=== PATIENT | female | born 1970 | race Caucasian/White ===

== ENCOUNTER 2016-09-30 07:09 | Emergency (ER) | payer OTHER ==
[~2016-09-30] VITALS: Ht 162.6 cm; Wt 64.4 kg
[~2016-09-30 07:09] MED LIST: ABILIFY20 MG PO; ANTACID; ATIVAN1 M1 PO; ATIVAN1 MG PO; BACTRIM DS 800/1 TAB PO; BELLADONNA ALK1 TAB PO; BELLADONNA1 TA1 PO; BENADRYL PO; BENADRYL50 MG PO; CETIRIZINE HCL10 MG PO; CIPRO250 M1 PO; CIPRO500 MG PO; CLONAZEPAM1 M1 PO; COGENTIN; COGENTIN1 M1 PO; CYCLOBENZAPRINE10 MG PO; DEPAKOTE; DEPAKOTE ER500 MG PO; DEPAKOTE250 M1; DEPAKOTE500 M1 PO; DEPAKOTE500 MG PO; DITROPAN5 MG PO; FAMOTIDINE10 MG PO; GEODON; GEODON20 MG PO; HALDOL1 MG PO; HALDOL20 MG PO; HALDOL5 MG PO; HALOPERIDOL5 MG PO; HYDROCODONE BIT1 T52 PO; IMMODIUM PO; KEFLEX500 M1 PO; KENALOG 0.1%15 GM TP; MIRALAX17 GM/DOSE PO; NEURONTIN; NEURONTIN300 M1 PO; OMEPRAZOLE40 MG PO; ONDANSETRON ODT4 MG SL; PAXIL; PHENERGAN25 M1 PO; PREMARIN0.625 M1 PO; RANITIDINE150 MG PO; REGLAN5 M1 PO; RESPERIDOL; RISPERDAL CONST50 MG IM; RISPERDAL CONST50 MG IM/IV; RISPERIDAL; SERAQUIL; SEROQUEL XR400 MG PO; SEROQUEL100 MG PO; SEROQUEL200 MG PO; SEROQUEL25 MG; SEROQUEL25 MG PO; SEROQUEL400 MG PO; SUCRALFATE1 GM PO; SYNTHROID0.025 MG PO; TYLENOL #3 300/1 TAB PO; ULTRAM50 MG PO; VALPROIC ACID PO; VALPROIC ACID250 M1 PO; VICODIN 5/500 M1 TAB PO; ZANTAC; ZOCOR40 MG PO; ZOFRAN PO; ZOFRAN4 M1 PO; ZOFRAN4 M3 PO; ZYPREXA; ZYPREXA ZYDIS10 MG; ZYPREXA10 MG; [UNRECOGNIZED DRUG - OTHER]; albuterol
[2016-09-30 07:27] VITALS: BP 115/76
--- NOTE | 2016-09-30 07:39 | NUR ---
Patient ambulated to bed 03.
--- NOTE | 2016-09-30 07:41 | NUR ---
Dr. Jaeger evaluating patient at bedside.
--- NOTE | 2016-09-30 07:42 | NUR ---
PATIENT PRESENTS TO ED WITH FALL THIS MORNING, HAS LEFT BREAST PAIN, FREQUENT URINATION, BACK PAIN, TWO DAYS AGO HAVE ABDOMINAL PAIN, VOMITTING, DIARRHEA HX BIPOLAR, SCHIZOPHRENIA, ASTHMA, ANXIETY, HTN, HIGH CHOLESTEROL,SEIZURES, DENIES N/V/D AT THIS TIME, SKIN IS PINK/WARM/DRY; AAOX4 WITH EVEN AND STEADY GAIT; LUNGS CLEAR BL; HR EVEN AND REGULAR; PT DENIES ANY FEVER, CP, SOB, OR COUGH AT THIS TIME; PATIENT STATES PAIN OF 10/10 AT THIS TIME; VSS; PATIENT POSITIONED FOR COMFORT; HOB ELEVATED; BEDRAILS UP X2; BED DOWN. ER MD MADE AWARE OF PT STATUS.
[2016-09-30] MEDS ORDERED: KETOROLAC 60 MG/2 ML VIAL IM ONE (07:45)
--- NOTE | 2016-09-30 07:48 | NUR ---
AWRE OF URINE DIP RESULT
[2016-09-30 09:37] VITALS: BP 114/67
--- NOTE | 2016-09-30 09:37 | NUR ---
Patient discharged with v/s stable. Written and verbal after care instructions given and explained. Patient alert, oriented and verbalized understanding of instructions. Ambulatory with steady gait. All questions addressed prior to discharge. ID band removed. Patient advised to follow up with PMD. Rx of TRAMADOL 50 MG given. Patient educated on indication of medication including possible reaction and side effects. Opportunity to ask questions provided and answered.
== END 2016-09-30 09:37 | disposition home or self-care (01) ==
LOC: MED 07:09
DX: R10.84 Generalized abdominal pain (principal); Z88.6 Allergy status to analgesic agent; Z88.5 Allergy status to narcotic agent
CPT/HCPCS: 36415; 74022; 80053; 81001; 81025; 82150; 83690; 85025; 85610; 85730; 87086; 96372; 99285; J1885

== ENCOUNTER 2016-10-25 07:23 | Emergency (ER) | payer OTHER ==
[~2016-10-25] VITALS: Ht 162.6 cm; Wt 63.0 kg
[2016-10-25 07:31] VITALS: BP 117/78
[2016-10-25] MEDS ORDERED: PHENERGAN/CODEIN5 ML PO (07:35)
--- NOTE | 2016-10-25 07:36 | NUR ---
Patient ambulated to bed 06.
--- NOTE | 2016-10-25 07:37 | NUR ---
PT STATES COUGH X 1 WEEK . DENIES N/V/D; SKIN IS PINK/WARM/DRY; AAOX4 WITH EVEN AND STEADY GAIT; LUNGS CLEAR BL; HR EVEN AND REGULAR; PT DENIES ANY FEVER, CP, SOB, AT THIS TIME; PATIENT STATES PAIN OF BACK PAIN WHILE COUGHING 9/10 AT THIS TIME; VSS; PATIENT POSITIONED FOR COMFORT; HOB ELEVATED; BEDRAILS UP X2; BED DOWN. ER MD MADE AWARE OF PT STATUS.
--- NOTE | 2016-10-25 07:59 | NUR ---
Dr. Maravilla evaluating patient at bedside.
[2016-10-25] MEDS ORDERED: ALBUTEROL SULFATE/IPRATROPIU 3 ML SOL IH ONE (08:05)
[2016-10-25] MEDS ORDERED: MORPHINE SULFATE 2 MG/ML SYR IM ONE (08:05)
[2016-10-25] MEDS ORDERED: ONDANSETRON 4 MG ODT PO ONE (08:05)
--- NOTE | 2016-10-25 08:35 | NUR ---
Patient back from XRAY via wheelchair per tech
[2016-10-25] MEDS ORDERED: LORazepam 1 MG TAB PO ONE (09:10)
[2016-10-25 09:18] VITALS: BP 106/71
--- NOTE | 2016-10-25 09:18 | NUR ---
Patient discharged with v/s stable. Written and verbal after care instructions given and explained. Patient alert, oriented and verbalized understanding of instructions. Ambulatory with steady gait. All questions addressed prior to discharge. ID band removed. Patient advised to follow up with PMD. Rx of PREDNISONE AND AZITHROMYCIN given. Patient educated on indication of medication including possible reaction and side effects. Opportunity to ask questions provided and answered.
== END 2016-10-25 09:18 | disposition home or self-care (01) ==
LOC: MED 07:43
DX: J45.901 Unspecified asthma with (acute) exacerbation (principal); F41.9 Anxiety disorder, unspecified; I10 Essential (primary) hypertension; Z88.5 Allergy status to narcotic agent; Z88.8 Allergy status to other drugs, medicaments and biological substances
CPT/HCPCS: 71020; 94640; 96372; 99284; J2270; J7620; S0119

== ENCOUNTER 2016-10-29 17:16 | Emergency (ER) | payer OTHER ==
[~2016-10-29] VITALS: Ht 162.6 cm; Wt 63.0 kg
[~2016-10-29 17:16] MED LIST changes: +PHENERGAN/CODEIN5 ML PO
[2016-10-29] MEDS ORDERED: NACL 0.9% 1,000 ML IV ONE (17:20)
[2016-10-29] MEDS ORDERED: KETOROLAC 30 MG/ML VIAL IVP ONE (17:20)
[2016-10-29] MEDS ORDERED: ASPIRIN 81 MG TAB.CHEW PO ONE (17:20)
[2016-10-29 17:22] VITALS: BP 108/69
--- NOTE | 2016-10-29 17:25 | NUR ---
46/F BIBA FROM HOME C/O COUGH X 1 DAY; PER EMS, PT DX W/ BRONCHITIS FROM [facility] X 2 WEEKS AGO, HAS BEEN HAVING COUGH SINCE, BUT WORSENED TODAY. HX: BIPOLAR, SCHIZOPHRENIA, ASTHMA, HTN, HIGH CHOLESTEROL, SEIZURE, ANXIETY. PT DENIES N/V/D; SKIN IS PINK/WARM/DRY; AAOX4 WITH EVEN AND STEADY GAIT; LUNGS CLEAR BL; HR EVEN AND REGULAR; PT DENIES ANY FEVER AT THIS TIME; PATIENT STATES PAIN OF 8/10 AT THIS TIME; VSS; PATIENT POSITIONED FOR COMFORT; HOB ELEVATED; BEDRAILS UP X2; BED DOWN. ER MD MADE AWARE OF PT STATUS.
--- NOTE | 2016-10-29 17:32 | NUR ---
X RAY AT BEDSIDE
[2016-10-29 19:21] VITALS: BP 125/78
--- NOTE | 2016-10-29 19:21 | NUR ---
Patient discharged with v/s stable. Written and verbal after care instructions given and explained. Patient alert, oriented and verbalized understanding of instructions. Ambulatory with steady gait. All questions addressed prior to discharge. ID band removed. Patient advised to follow up with PMD. Rx of DEXTROMETHORPHAN given. Patient educated on indication of medication including possible reaction and side effects. Opportunity to ask questions provided and answered.ENCOURAGED PT TO INCREASE FLUID INTAKE AND PT AGREED W/ IT.
== END 2016-10-29 19:21 | disposition home or self-care (01) ==
LOC: MED 17:16
DX: J06.9 Acute upper respiratory infection, unspecified (principal); J45.909 Unspecified asthma, uncomplicated; I10 Essential (primary) hypertension; E78.00 Pure hypercholesterolemia, unspecified; Z88.6 Allergy status to analgesic agent; Z88.5 Allergy status to narcotic agent
CPT/HCPCS: 36415; 71010; 80053; 81025; 83880; 84484; 85025; 85379; 85610; 85730; 93005; 96361; 96374; 99285; J1885; J7030; Q0092

== ENCOUNTER 2016-11-24 11:27 | Emergency (ER) | payer OTHER ==
[~2016-11-24] VITALS: Ht 160 cm; Wt 65.3 kg
[2016-11-24 11:41] VITALS: BP 112/71
[2016-11-24] MEDS ORDERED: ATIVAN1 MG PO (11:41)
[2016-11-24] MEDS ORDERED: RISPERDAL0.5 MG PO (11:41)
[2016-11-24] MEDS ORDERED: SEROQUEL300 MG PO (11:41)
[2016-11-24] MEDS ORDERED: BUSPAR5 MG PO (11:41)
[2016-11-24] MEDS ORDERED: NACL 0.9% 1,000 ML IV SCH (11:56)
[2016-11-24] MEDS ORDERED: ONDANSETRON 4 MG/2 ML VIAL IVP ONE (12:00)
--- NOTE | 2016-11-24 12:40 | NUR ---
Patient ambulated to bed 6. RN evaluating patient at bedside.
--- NOTE | 2016-11-24 12:41 | NUR ---
46/F BIB C/O BILATERAL FLANKS PAIN 7 RADIATES TO BACK X 2 DAYS. PT DENIES N/V/D; SKIN IS RASH; PT STATES FROM BUG BITED; AAOX4 WITH EVEN AND STEADY GAIT; LUNGS DIMINISHED BL; HR EVEN AND REGULAR; PT DENIES ANY FEVER, CP, SOB AT THIS TIME; PATIENT STATES PAIN OF 7/10 AT THIS TIME; VSS; PATIENT POSITIONED FOR COMFORT; HOB ELEVATED; BEDRAILS UP X2; BED DOWN. ER MD MADE AWARE OF PT STATUS.
[2016-11-24] MEDS ORDERED: IPRATROPIUM 0.02% 0.5 MG/2.5 ML NEBU INH ONE (12:55)
[2016-11-24] MEDS ORDERED: ALBUTEROL 0.083% 2.5 MG/3 ML NEBU INH ONE (12:55)
--- NOTE | 2016-11-24 13:00 | NUR ---
Patient appears to be resting comfortably in bed. Respirations even and unlabored.WILL CONTINUE TO MONITOR
[2016-11-24] MEDS ORDERED: MORPHINE SULFATE 2 MG/ML SYR IM ONE (13:15)
[2016-11-24] MEDS ORDERED: ONDANSETRON 4 MG/2 ML VIAL IM ONE (13:20)
[2016-11-24 15:36] VITALS: BP 103/61
--- NOTE | 2016-11-24 15:36 | NUR ---
Patient discharged with v/s stable. Written and verbal after care instructions given and explained. Patient alert, oriented and verbalized understanding of instructions. Ambulatory with steady gait. All questions addressed prior to discharge. ID band removed. Patient advised to follow up with PMD. Rx of TYLENOL W/ CODEINE NO3 & ALBUTEROL given. Patient educated on indication of medication including possible reaction and side effects. Opportunity to ask questions provided and answered.
== END 2016-11-24 15:36 | disposition home or self-care (01) ==
LOC: MED 11:27
DX: N23 Unspecified renal colic (principal); R06.02 Shortness of breath; R54 Age-related physical debility; J45.909 Unspecified asthma, uncomplicated; I10 Essential (primary) hypertension; Z88.5 Allergy status to narcotic agent; Z88.6 Allergy status to analgesic agent; Z98.890 Other specified postprocedural states
CPT/HCPCS: 36415; 80053; 80305; 81001; 81025; 82150; 83690; 85025; 94640; 96372; 99284; J2270; J2405; J7613; J7644

== ENCOUNTER 2017-02-16 01:47 | Emergency (ER) | payer OTHER ==
[~2017-02-16] VITALS: Ht 162.6 cm; Wt 63.5 kg
[~2017-02-16 01:47] MED LIST changes: -ABILIFY20 MG PO; -ANTACID; -ATIVAN1 M1 PO; -ATIVAN1 MG PO; -BACTRIM DS 800/1 TAB PO; -BELLADONNA ALK1 TAB PO; -BELLADONNA1 TA1 PO; -BENADRYL PO; -BENADRYL50 MG PO; +BUS5 PO; -CETIRIZINE HCL10 MG PO; -CIPRO250 M1 PO; -CIPRO500 MG PO; -CLONAZEPAM1 M1 PO; -COGENTIN; -COGENTIN1 M1 PO; -CYCLOBENZAPRINE10 MG PO; -DEPAKOTE; -DEPAKOTE ER500 MG PO; -DEPAKOTE250 M1; -DEPAKOTE500 M1 PO; -DEPAKOTE500 MG PO; -DITROPAN5 MG PO; -FAMOTIDINE10 MG PO; -GEODON; -GEODON20 MG PO; -HALDOL1 MG PO; -HALDOL20 MG PO; -HALDOL5 MG PO; -HALOPERIDOL5 MG PO; -HYDROCODONE BIT1 T52 PO; -IMMODIUM PO; -KEFLEX500 M1 PO; -KENALOG 0.1%15 GM TP; +LORA-476 PO; -MIRALAX17 GM/DOSE PO; -NEURONTIN; -NEURONTIN300 M1 PO; -OMEPRAZOLE40 MG PO; -ONDANSETRON ODT4 MG SL; -PAXIL; -PHENERGAN/CODEIN5 ML PO; -PHENERGAN25 M1 PO; +PRE.625 PO; -PREMARIN0.625 M1 PO; +QUET300T1 PO; -RANITIDINE150 MG PO; -REGLAN5 M1 PO; -RESPERIDOL; +RISP0.5T PO; -RISPERDAL CONST50 MG IM; -RISPERDAL CONST50 MG IM/IV; -RISPERIDAL; -SERAQUIL; -SEROQUEL XR400 MG PO; -SEROQUEL100 MG PO; -SEROQUEL200 MG PO; -SEROQUEL25 MG; -SEROQUEL25 MG PO; -SEROQUEL400 MG PO; -SUCRALFATE1 GM PO; -SYNTHROID0.025 MG PO; -TYLENOL #3 300/1 TAB PO; -ULTRAM50 MG PO; +VALP250S20 PO; -VALPROIC ACID PO; -VALPROIC ACID250 M1 PO; -VICODIN 5/500 M1 TAB PO; -ZANTAC; -ZOCOR40 MG PO; -ZOFRAN PO; -ZOFRAN4 M1 PO; -ZOFRAN4 M3 PO; -ZYPREXA; -ZYPREXA ZYDIS10 MG; -ZYPREXA10 MG; -[UNRECOGNIZED DRUG - OTHER]; -albuterol
[2017-02-16 02:05] VITALS: BP 155/93
--- NOTE | 2017-02-16 03:14 | NUR ---
PT TAKEN TO BED 4
--- NOTE | 2017-02-16 03:30 | NUR ---
Dr. Johnson evaluating patient at bedside.
[2017-02-16] MEDS ORDERED: ALBUTEROL SULFATE/IPRATROPIU 3 ML SOL IH ONE (03:40)
--- NOTE | 2017-02-16 04:02 | NUR ---
Respiratory Therapist at bedside for respiratory intervention.
--- NOTE | 2017-02-16 04:04 | NUR ---
46Y F BIB SELF C/O RT FLANK PAIN RADIATING TO HER BACK , AND FREQUENT URINATION STARTED 2 HOURS AGO. PT HAS WHEEZING BILAT. PT IS AAO X 4. PT HAS MED HX OF BIPOLAR SCHIZOPHRENIA.
--- NOTE | 2017-02-16 04:24 | NUR ---
X-Ray at bedside.
[2017-02-16] MEDS ORDERED: LIDOCAINE VISCOUS 2% 20 ML UDC PO ONE (04:30)
[2017-02-16] MEDS ORDERED: ALUMINUM HYD/MAG/SIMETHICONE 30 ML UDC PO ONE (04:30)
[2017-02-16 05:09] VITALS: BP 132/82
--- NOTE | 2017-02-16 05:09 | NUR ---
Patient discharged with v/s stable. Written and verbal after care instructions given and explained. Patient alert, oriented and verbalized understanding of instructions. Ambulatory with steady gait. All questions addressed prior to discharge. ID band removed. Patient advised to follow up with PMD. Rx of PREDNISONE 50MG given. Patient educated on indication of medication including possible reaction and side effects. Opportunity to ask questions provided and answered.
== END 2017-02-16 05:09 | disposition home or self-care (01) ==
LOC: MED 01:47
DX: J45.901 Unspecified asthma with (acute) exacerbation (principal); R03.0 Elevated blood-pressure reading, without diagnosis of hypertension; Z88.6 Allergy status to analgesic agent; Z88.5 Allergy status to narcotic agent; Z88.8 Allergy status to other drugs, medicaments and biological substances; I10 Essential (primary) hypertension
CPT/HCPCS: 71010; 81002; 81025; 94640; 99283; J7620; Q0092

== ENCOUNTER 2017-04-25 07:46 | Emergency (ER) | payer OTHER ==
[~2017-04-25] VITALS: Ht 162.6 cm; Wt 66.2 kg
--- NOTE | 2017-04-25 07:55 | NUR ---
Eddi jarvis in ED - 04/25/17 at 0800 by MMTHEM Patient ambulated to bed 3. RN evaluating patient at bedside.
--- NOTE | 2017-04-25 07:59 | NUR ---
Eddi jarvis in [facility] - 04/25/[address] at [address] Jaeger evaluating patient at bedside.
[2017-04-25 08:14] VITALS: BP 113/69
--- NOTE | 2017-04-25 08:23 | NUR ---
Patient ambulated to bed 6. RN evaluating patient at bedside.
--- NOTE | 2017-04-25 08:26 | NUR ---
Dr. Jaeger evaluating patient at bedside.
--- NOTE | 2017-04-25 08:30 | NUR ---
47/F PRESENT TO ER C/O PAINFUL LUMP UPON SWALLOWING TO ANTERIOR THROAT X 1 MONTH---HAS NOT BEEN SEEN BY PMD. PAIN 9/10 ACHING NON-RADIATING. NECK AREA NO REDNESS, NO SWELLING. PT STATES PAINFUL WHEN SHALLOWING BUT DENIES DIFFICULTY BREATHING. PT STATES SHE HAS HX---BIPOLAR SCHIZOPHRENIA, ANXIETY, HTN ,HYPERLIPIDEMIA, HYPERTHYROID, ASTHMA, GENITAL HERPES. DENIES TAKING ANY MEDS FOR THE PAIN. ERMD NOTIFIED OF PATIENT STATUS.
[2017-04-25 10:08] LABS: HEMATOCRIT 37.6 % (36-48); HEMOGLOBIN 12.6 g/dL (12.0-16.0); MEAN CORPUSCULAR HEMOGLOBIN 29 pg (27-31); MEAN CORPUSCULAR HGB CONC 33 g/dL (33-37); MEAN CORPUSCULAR VOLUME 88 fL (80-94); PLATELET COUNT (AUTO) 279 K/uL (140-450); RED BLOOD CELL COUNT(AUTO) 4.27 MIL/uL (4.20-5.40); RED CELL DISTRIBUTION WIDTH 14.3 % (11.6-13.7); WHITE BLOOD COUNT (AUTO) 8.6 K/uL (4.8-10.8)
[2017-04-25 10:17] LABS: ANION GAP 14.2 (8-16); CARBON DIOXIDE 25.5 mmol/L (21-32); CREATININE 0.7 mg/dL (0.6-1.3); POTASSIUM 3.7 mmol/L (3.5-5.1)
[2017-04-25 10:27] LABS: EOSINOPHILS % (MANUAL) 1 % (0-4); LYMPHOCYTES % (MANUAL) 28 % (20-46); MONOCYTES % (MANUAL) 8 % (5-12)
[2017-04-25 10:32] LABS: THYROID STIMULATING HORMONE 0.79 uIU/mL (0.34-3.74); TOTAL BILIRUBIN 0.3 mg/dL (0.0-1.0)
--- NOTE | 2017-04-25 11:07 | NUR ---
Patient discharged with v/s stable. Written and verbal after care instructions given and explained. Patient alert, oriented and verbalized understanding of instructions. Ambulatory with steady gait. All questions addressed prior to discharge. ID band removed. Patient advised to follow up with PMD. Rx of TRAMADOL 50MG TABLET given. Patient educated on indication of medication including possible reaction and side effects. Opportunity to ask questions provided and answered.
[2017-04-25 11:08] VITALS: BP 120/72
== END 2017-04-25 11:08 | disposition home or self-care (01) ==
LOC: MED 07:46
DX: E04.1 Nontoxic single thyroid nodule (principal); J44.9 Chronic obstructive pulmonary disease, unspecified; I10 Essential (primary) hypertension; Z88.5 Allergy status to narcotic agent; Z88.6 Allergy status to analgesic agent
CPT/HCPCS: 36415; 76536; 80053; 81002; 81025; 84443; 85025; 86800; 93005; 99285; Q0092

== ENCOUNTER 2017-10-14 06:10 | Emergency (ER) | payer OTHER ==
[~2017-10-14] VITALS: Ht 162.6 cm; Wt 64.1 kg
[~2017-10-14 06:10] MED LIST changes: -RISP0.5T PO; +RISP0.5T3 PO
[2017-10-14 06:24] VITALS: BP 120/76
--- NOTE | 2017-10-14 06:30 | NUR ---
PATIENT AMBULATED TO ER BBED 12.
--- NOTE | 2017-10-14 06:32 | NUR ---
PATIENT IS A 47 Y/O FEMALE WHO PRESENTS TO THE ED C/O NAUSEA/VOMITING. PT STATES, "I STARTED HAVING THESE SYMPTOMS AROUND FRIDAY." PT REPORTS 10/10 ACHING HEADACHE AND ABD PAIN THAT DOES NOT RADIATE. PT DENIES CP, SOB, REPORTS N/V/D. PT AAOX4, RR EVEN/UNLABORED. PT REPOSITIONED FOR COMFORT, BED IN LOWEST POSITION. ER MD DR. ROMANO NOTIFIED. WILL CONTINUE TO MONITOR.
--- NOTE | 2017-10-14 07:05 | NUR ---
Pt report given to MARY RN. Transfer of care at this time.
--- NOTE | 2017-10-14 07:15 | NUR ---
ASSUMED PATIENT CARE, CONCUR WITH TRIAGE. NURSING ASSESSMENT COMPLETED.
[2017-10-14] MEDS ORDERED: NACL 0.9% 1,000 ML IV ONE (07:28)
[2017-10-14] MEDS ORDERED: ONDANSETRON 4 MG/2 ML VIAL IVP ONE (07:30)
[2017-10-14] MEDS ORDERED: DICYCLOMINE 20 MG/2 ML VIAL IM ONE (07:30)
--- NOTE | 2017-10-14 08:00 | NUR ---
SEEN AND EVALUATED BY , MSE COMPLETED.
[2017-10-14 08:14] LABS: APPEARANCE,URINE CLOUDY (CLEAR); BILIRUBIN,URINE 1+ (NEGATIVE); BLOOD, URINE NEGATIVE (NEGATIVE); COLOR,URINE YELLOW (YELLOW); LEUKOCYTE ESTERASE ,URINE 1+ (NEGATIVE); NITRITE, URINE NEGATIVE (NEGATIVE); UGLUCOSE NEGATIVE (NEGATIVE)
[2017-10-14 08:26] LABS: ALBUMIN 3.8 g/dL (3.4-5.0); ANION GAP 14.7 (8-16); CREATININE 0.8 mg/dL (0.6-1.3); POTASSIUM 3.7 mmol/L (3.5-5.1); TOTAL BILIRUBIN 0.4 mg/dL (0.0-1.0)
[2017-10-14 08:35] LABS: BASOPHILS # (AUTO) 0.3 K/uL (0.00-0.22); BASOPHILS % (AUTO) 2.8 % (0.0-2.0); EOSINOPHILS # (AUTO) 0.1 K/uL (0-0.4); EOSINOPHILS % (AUTO) 0.9 % (0.0-4.0); HEMATOCRIT 38.3 % (36-48); HEMOGLOBIN 12.7 g/dL (12.0-16.0); LYMPHOCYTES # (AUTO) 1.7 K/uL (2.5-16.5); LYMPHOCYTES % (AUTO) 18.9 % (20.5-51.1); MEAN CORPUSCULAR HEMOGLOBIN 30 pg (27-31); MEAN CORPUSCULAR HGB CONC 33 g/dL (33-37); MEAN CORPUSCULAR VOLUME 89 fL (80-94); MONOCYTES # (AUTO) 0.5 K/uL (0.8-1.0); MONOCYTES % (AUTO) 5.7 % (1.7-9.3); NEUTROPHILS # (AUTO) 6.6 K/uL (1.8-7.7); NEUTROPHILS % (AUTO) 71.7 % (42.2-75.2); PLATELET COUNT (AUTO) 293 K/uL (140-450); RED BLOOD CELL COUNT(AUTO) 4.31 MIL/uL (4.20-5.40); RED CELL DISTRIBUTION WIDTH 13.8 % (11.6-13.7); WHITE BLOOD COUNT (AUTO) 9.2 K/uL (4.8-10.8)
[2017-10-14] MEDS ORDERED: MORPHINE SULFATE 4 MG/ML SYR IVP ONE (09:00)
[2017-10-14 09:13] LABS: RBC,URINE 0-5 (RARE) /HPF (0-5)
[2017-10-14 09:48] VITALS: BP 114/71
--- NOTE | 2017-10-14 09:49 | NUR ---
DISPO AND MEDICAL DECISION MAKING, DC HOME WITH INSTRUCTIONS AND PRESCRIPTIONS, UNDERSTOOD BY PATIENT WELL, VSWNL, NO DISTRESS, SYMPTOMS RESOLVED.
== END 2017-10-14 09:49 | disposition home or self-care (01) ==
LOC: MED 06:10
DX: N39.0 Urinary tract infection, site not specified (principal); J45.909 Unspecified asthma, uncomplicated; I10 Essential (primary) hypertension; Z88.5 Allergy status to narcotic agent; Z88.6 Allergy status to analgesic agent; Z90.49 Acquired absence of other specified parts of digestive tract
CPT/HCPCS: 36415; 80053; 81001; 83690; 85025; 87086; 96361; 96374; 96375; 99284; J0500; J2270; J2405; 81025

== ENCOUNTER 2018-01-09 08:39 | Emergency (ER) | payer OTHER ==
[~2018-01-09] VITALS: Ht 162.6 cm; Wt 62.8 kg
[2018-01-09 08:44] VITALS: BP 116/52
--- NOTE | 2018-01-09 08:47 | NUR ---
PT AMBULATES TO BED 5, REPORT GIVEN TO OLIVIA STONER
--- NOTE | 2018-01-09 08:57 | NUR ---
pt adds she is going through a genital herpes outbreak at this time ---md notified
--- NOTE | 2018-01-09 08:57 | NUR ---
PATIENT PRESENTS TO ED WITH c/o lower back pain and loose stools [place]/p [place] also adds dysuria with burning pain upon voiding denies recent injury/trauma--ambulatory with steady gait. SKIN IS PINK/WARM/DRY; AAOX4 LUNGS CLEAR BL; HR EVEN AND REGULAR; PT DENIES ANY FEVER, CP, SOB, OR COUGH AT THIS TIME; PATIENT STATES PAIN OF 8/10 AT THIS TIME; VSS; PATIENT POSITIONED FOR COMFORT; HOB ELEVATED; BEDRAILS UP X2; BED DOWN. ER MD MADE AWARE OF PT STATUS.
[2018-01-09] MEDS ORDERED: LEVOFLOXACIN 500 MG TAB PO ONE (09:15)
[2018-01-09] MEDS ORDERED: LORazepam 2 MG/ML VIAL IM ONE (09:15)
--- NOTE | 2018-01-09 10:01 | NUR ---
Patient discharged with v/s stable. Written and verbal after care instructions given and explained. Patient alert, oriented and verbalized understanding of instructions. Ambulatory with steady gait. All questions addressed prior to discharge. ID band removed. Patient advised to follow up with PMD. Rx of toradol/acyclovir/vistaril given. Patient educated on indication of medication including possible reaction and side effects. Opportunity to ask questions provided and answered.
[2018-01-09 10:02] VITALS: BP 117/70
== END 2018-01-09 10:01 | disposition home or self-care (01) ==
LOC: MED 08:39
DX: A60.00 Herpesviral infection of urogenital system, unspecified (principal); N30.90 Cystitis, unspecified without hematuria; R19.7 Diarrhea, unspecified; F48.9 Nonpsychotic mental disorder, unspecified; J45.909 Unspecified asthma, uncomplicated; I10 Essential (primary) hypertension; Z76.0 Encounter for issue of repeat prescription; Z88.8 Allergy status to other drugs, medicaments and biological substances; Z79.899 Other long term (current) drug therapy; Z87.891 Personal history of nicotine dependence
CPT/HCPCS: 81002; 81025; 96372; 99283; J2060

== ENCOUNTER 2018-03-18 20:24 | Emergency (ER) | payer OTHER ==
[~2018-03-18] VITALS: Ht 162.6 cm; Wt 64.0 kg
[2018-03-18 20:31] VITALS: BP 115/75
[2018-03-18] MEDS ORDERED: KETOROLAC 30 MG/ML VIAL IVP ONE (20:45)
[2018-03-18] MEDS ORDERED: NACL 0.9% 1,000 ML IV ONE (20:45)
[2018-03-18 21:10] LABS: BASOPHILS % (AUTO) 0.4 % (0.0-2.0); EOSINOPHILS # (AUTO) 0.3 K/uL (0-0.4); HEMATOCRIT 33.2 % (36-48); HEMOGLOBIN 11.1 g/dL (12.0-16.0); LYMPHOCYTES # (AUTO) 3.4 K/uL (2.5-16.5); LYMPHOCYTES % (AUTO) 39.1 % (20.5-51.1); MEAN CORPUSCULAR HEMOGLOBIN 30 pg (27-31); MEAN CORPUSCULAR HGB CONC 34 g/dL (33-37); MEAN CORPUSCULAR VOLUME 88.5 fL (80-94); MONOCYTES # (AUTO) 0.6 K/uL (0.8-1.0); MONOCYTES % (AUTO) 7.2 % (1.7-9.3); NEUTROPHILS # (AUTO) 4.4 K/uL (1.8-7.7); NEUTROPHILS % (AUTO) 50.3 % (42.2-75.2); PLATELET COUNT (AUTO) 277 K/uL (140-450); RED BLOOD CELL COUNT(AUTO) 3.75 MIL/uL (4.20-5.40); RED CELL DISTRIBUTION WIDTH 13.7 % (11.6-13.7); WHITE BLOOD COUNT (AUTO) 8.7 K/uL (4.8-10.8)
[2018-03-18 21:25] LABS: BILIRUBIN,URINE NEGATIVE (NEGATIVE); BLOOD, URINE TRACE-I (NEGATIVE); LEUKOCYTE ESTERASE ,URINE 1+ (NEGATIVE); NITRITE, URINE POSITIVE (NEGATIVE); UGLUCOSE NEGATIVE (NEGATIVE)
[2018-03-18 21:26] LABS: APPEARANCE,URINE HAZY (CLEAR); COLOR,URINE YELLOW (YELLOW)
[2018-03-18 21:38] LABS: ALBUMIN 3.1 g/dL (3.4-5.0); ANION GAP 13.6 (8-16); CARBON DIOXIDE 26.7 mmol/L (21-32); CREATININE 0.7 mg/dL (0.6-1.3); FREE T4 (FREE THYROXINE) 0.89 ng/dL (0.76-1.46); POTASSIUM 3.3 mmol/L (3.5-5.1); THYROID STIMULATING HORMONE 0.27 uIU/mL (0.34-3.74); TOTAL BILIRUBIN 0.2 mg/dL (0.0-1.0)
[2018-03-18 22:08] LABS: RBC,URINE 3-10 (FEW) /HPF (0-5); WBC,URINE TOO MANY TO COUNT /HPF (0-5)
[2018-03-18 23:01] VITALS: BP 118/78
== END 2018-03-18 23:03 | disposition home or self-care (01) ==
LOC: MED 20:24
DX: N39.0 Urinary tract infection, site not specified (principal); J02.9 Acute pharyngitis, unspecified; R53.1 Weakness; J45.909 Unspecified asthma, uncomplicated; I10 Essential (primary) hypertension; F41.9 Anxiety disorder, unspecified; F20.9 Schizophrenia, unspecified; Z79.899 Other long term (current) drug therapy; Z88.8 Allergy status to other drugs, medicaments and biological substances
CPT/HCPCS: 36415; 80053; 81001; 81025; 84439; 84443; 85025; 87086; 87186; 96374; 99284; J1885

== ENCOUNTER 2018-10-28 10:05 | Emergency (ER) | payer OTHER ==
[~2018-10-28] VITALS: Ht 162.6 cm; Wt 59.4 kg
--- NOTE | 2018-10-28 10:14 | NUR ---
PATIENT AMBULATED TO BED 3 AT THIS TIME.
--- NOTE | 2018-10-28 10:20 | NUR ---
PATIENT PRESENTS TO ED WITH THE CHIEF C/O FLANK PAIN. DENIES ANY BURNING URINATION OR BLOOD IN URINE. DENIES N/V/D AT THIS TIME. HAD DIARRHEA 4 DAYS AGO. SKIN IS PINK/WARM/DRY. AAOX4 WITH EVEN AND STEADY GAIT. PT DENIES ANY FEVER, CP, SOB, OR COUGH AT THIS TIME. PATIENT STATES PAIN OF 10/10 AT THIS TIME. VSS. PATIENT POSITIONED FOR COMFORT. HOB ELEVATED. BEDRAILS UP X2. BED DOWN. ER MD MADE AWARE OF PT STATUS.
[2018-10-28 10:21] VITALS: BP 127/79
[2018-10-28 10:44] LABS: BILIRUBIN,URINE NEGATIVE (NEGATIVE); BLOOD, URINE NEGATIVE (NEGATIVE); COLOR,URINE YELLOW (YELLOW); LEUKOCYTE ESTERASE ,URINE TRACE (NEGATIVE); NITRITE, URINE POSITIVE (NEGATIVE); UGLUCOSE NEGATIVE (NEGATIVE)
[2018-10-28 10:50] LABS: RBC,URINE NONE SEEN /HPF (0-5); WBC,URINE 0-5 /HPF (0-5)
[2018-10-28 10:51] LABS: APPEARANCE,URINE SLIGHTLY HAZY (CLEAR)
[2018-10-28] MEDS ORDERED: KETOROLAC 60 MG/2 ML VIAL IM ONE (11:10)
[2018-10-28 11:44] LABS: BASOPHILS % (AUTO) 0.6 % (0.0-2.0); EOSINOPHILS # (AUTO) 0.1 K/uL (0-0.4); EOSINOPHILS % (AUTO) 1.6 % (0.0-4.0); HEMATOCRIT 34.1 % (36-48); HEMOGLOBIN 11.4 g/dL (12.0-16.0); LYMPHOCYTES # (AUTO) 2.6 K/uL (2.5-16.5); LYMPHOCYTES % (AUTO) 38.6 % (20.5-51.1); MEAN CORPUSCULAR HEMOGLOBIN 29 pg (27-31); MEAN CORPUSCULAR HGB CONC 34 g/dL (33-37); MEAN CORPUSCULAR VOLUME 87.5 fL (80-94); MONOCYTES # (AUTO) 0.3 K/uL (0.8-1.0); MONOCYTES % (AUTO) 4.5 % (1.7-9.3); NEUTROPHILS # (AUTO) 3.6 K/uL (1.8-7.7); NEUTROPHILS % (AUTO) 54.7 % (42.2-75.2); PLATELET COUNT (AUTO) 316 K/uL (140-450); RED CELL DISTRIBUTION WIDTH 15.5 % (11.6-13.7); WHITE BLOOD COUNT (AUTO) 6.7 K/uL (4.8-10.8)
[2018-10-28 11:51] LABS: ANION GAP 12.7 (8-16); CARBON DIOXIDE 23.7 mmol/L (21-32); CREATININE 0.8 mg/dL (0.6-1.3); POTASSIUM 3.4 mmol/L (3.5-5.1)
[2018-10-28 11:57] LABS: ALBUMIN 3.3 g/dL (3.4-5.0); TOTAL BILIRUBIN 0.3 mg/dL (0.0-1.0)
--- NOTE | 2018-10-28 12:31 | NUR ---
PT SENT TO [facility] VIA W/C WITH [employer] AAOX4 AT THIS TIME
[2018-10-28] MEDS ORDERED: LORazepam 1 MG TAB PO ONE (12:35)
--- NOTE | 2018-10-28 12:47 | NUR ---
PO MEDS GIVEN-NADR AT THIS TIME
[2018-10-28 12:57] VITALS: BP 122/72
--- NOTE | 2018-10-28 13:02 | NUR ---
Patient discharged with v/s stable. Written and verbal after care instructions given and explained. Patient alert, oriented and verbalized understanding of instructions. Ambulatory with steady gait. All questions addressed prior to discharge. ID band removed. Patient advised to follow up with PMD. Rx of COLACE,NAPROSYN given. Patient educated on indication of medication including possible reaction and side effects. Opportunity to ask questions provided and answered.
== END 2018-10-28 13:02 | disposition home or self-care (01) ==
LOC: MED 10:05
DX: K59.00 Constipation, unspecified (principal); F41.9 Anxiety disorder, unspecified; J45.909 Unspecified asthma, uncomplicated; I10 Essential (primary) hypertension; F31.9 Bipolar disorder, unspecified; F20.9 Schizophrenia, unspecified; Z87.442 Personal history of urinary calculi; Z90.49 Acquired absence of other specified parts of digestive tract; Z98.51 Tubal ligation status; Z79.899 Other long term (current) drug therapy; Z88.6 Allergy status to analgesic agent; Z88.5 Allergy status to narcotic agent; Z88.8 Allergy status to other drugs, medicaments and biological substances
CPT/HCPCS: 36415; 80053; 81001; 81025; 83690; 85025; 87086; 96372; 99283; J1885; 87186

== ENCOUNTER 2019-01-18 00:20 | Emergency (ER) | payer OTHER ==
[~2019-01-18] VITALS: Ht 162.6 cm; Wt 61.2 kg
[2019-01-18 00:28] VITALS: BP 110/67
--- NOTE | 2019-01-18 00:31 | NUR ---
TO LOBBY A/W BED, AMBULATORY
--- NOTE | 2019-01-18 01:38 | NUR ---
Dr. Sewell evaluating patient at bedside.
--- NOTE | 2019-01-18 01:38 | NUR ---
PT TAKEN TO BED 10
[2019-01-18] MEDS ORDERED: LORazepam 2 MG/ML VIAL IM ONE (01:45)
--- NOTE | 2019-01-18 02:00 | NUR ---
48 YO F BIB SELF C/O 610 NECK PAIN THAT HAS BEEN ONGOING X 1 YEAR. PT IS A POOR HISTORIAN AND HAS DIFFICULTY ANSWERING QUESTIONS. SHE STATES IT COMES AND GOES. PT APPEARS ANXIOUS, FIDGETING. PMH-- BIPOLAR DISORDER, SCHIZOPHRENIA
[2019-01-18 02:34] VITALS: BP 110/67
--- NOTE | 2019-01-18 02:34 | NUR ---
Patient discharged with v/s stable. Written and verbal after care instructions given and explained. Patient verbalized understanding. Ambulatory with steady gait. All questions addressed prior to discharge. Advised to follow up with PMD.
== END 2019-01-18 02:34 | disposition home or self-care (01) ==
LOC: MED 00:20
DX: F41.9 Anxiety disorder, unspecified (principal); J45.909 Unspecified asthma, uncomplicated; I10 Essential (primary) hypertension; F31.9 Bipolar disorder, unspecified; F20.9 Schizophrenia, unspecified; Z79.899 Other long term (current) drug therapy; Z88.6 Allergy status to analgesic agent; Z88.5 Allergy status to narcotic agent; Z88.8 Allergy status to other drugs, medicaments and biological substances
CPT/HCPCS: 96372; 99284; J2060

== ENCOUNTER 2019-01-25 20:47 | Emergency (ER) | payer OTHER ==
[~2019-01-25] VITALS: Ht 162.6 cm; Wt 61.7 kg
[2019-01-25 20:56] VITALS: BP 112/63
--- NOTE | 2019-01-25 21:13 | NUR ---
PT TAKEN TO BED 8
--- NOTE | 2019-01-25 21:44 | NUR ---
PT TO ED WITH C/O NECK PAIN RADIATING DOWN TO SPINE WITH DIFFICULTY SWALLOWING. PT SEEN AT [facility] AND WITH NECK PAIN. PT STATES "I CAME HERE TO SEE WHAT THEY CAN DO FOR ME BECAUSE I HAVE JOSEFA PUT MY FOOD IN A [employer]INO WORKER TO SWALLOW IT" PT IS ABLE TO SPEAK IN FULL CLEAR SENTENCES WITHOUT DIFFICULTY. NO OBVIOUS DISTRESS NOTED. PT PLACED INTO BED, PENDING MD VILLALOBOS.
--- NOTE | 2019-01-25 21:44 | NUR ---
Dr. Sewell evaluating patient at bedside.
[2019-01-25] MEDS ORDERED: KETOROLAC 30 MG/ML VIAL IM ONE (21:50)
[2019-01-25 22:32] VITALS: BP 121/78
== END 2019-01-25 22:32 | disposition home or self-care (01) ==
LOC: MED 20:47
DX: R13.10 Dysphagia, unspecified (principal); M54.2 Cervicalgia; J02.9 Acute pharyngitis, unspecified; J45.909 Unspecified asthma, uncomplicated; I10 Essential (primary) hypertension; F20.9 Schizophrenia, unspecified; F41.9 Anxiety disorder, unspecified; E07.9 Disorder of thyroid, unspecified; Z88.6 Allergy status to analgesic agent; Z88.5 Allergy status to narcotic agent; Z88.8 Allergy status to other drugs, medicaments and biological substances; Z79.899 Other long term (current) drug therapy
CPT/HCPCS: 70360; 96372; 99283; J1885

== ENCOUNTER 2019-02-07 16:20 | Emergency (ER) | payer OTHER ==
[~2019-02-07] VITALS: Ht 162.6 cm; Wt 61.2 kg
[2019-02-07 16:24] VITALS: BP 123/80
--- NOTE | 2019-02-07 16:24 | NUR ---
TO BED # 09 AMBULATORY
[2019-02-07] MEDS ORDERED: KETOROLAC 60 MG/2 ML VIAL IM ONE (16:35)
--- NOTE | 2019-02-07 16:49 | NUR ---
Patient taken to x-ray
--- NOTE | 2019-02-07 17:19 | NUR ---
PT RETURNED FROM XRAY.
--- NOTE | 2019-02-07 18:24 | NUR ---
CALLED XRAY TO FOLLOW UP FOR REPORT, [facility] CALL HAS BEEN PLACED FOR REPORT.
--- NOTE | 2019-02-07 18:40 | NUR ---
DR MAGDALENO AT BEDSIDE EVALUATING PT.
[2019-02-07] MEDS ORDERED: MORPHINE SULFATE 4 MG/ML SYR IM ONE (18:50)
[2019-02-07 19:15] VITALS: BP 123/80
--- NOTE | 2019-02-07 19:20 | NUR ---
RECEIVED REPORT TREVOR. PT VSS.
--- NOTE | 2019-02-07 19:21 | NUR ---
ASSESSED PT AND DENIES PAIN 0/10. IS READY FOR DISCHARGE.
--- NOTE | 2019-02-07 19:22 | NUR ---
Patient discharged with v/s stable. Written and verbal after care instructions given and explained. Patient alert, oriented and verbalized understanding of instructions. Ambulatory with steady gait. All questions addressed prior to discharge. ID band removed. Patient advised to follow up with PMD. Rx of MOTRIN AND NORCO given. Patient educated on indication of medication including possible reaction and side effects. Opportunity to ask questions provided and answered.
== END 2019-02-07 19:15 | disposition home or self-care (01) ==
LOC: MED 16:20
DX: S22.32XA Fracture of one rib, left side, initial encounter for closed fracture (principal); J45.909 Unspecified asthma, uncomplicated; I10 Essential (primary) hypertension; F20.9 Schizophrenia, unspecified; F32.9 Major depressive disorder, single episode, unspecified; F41.9 Anxiety disorder, unspecified; E07.9 Disorder of thyroid, unspecified; Z90.49 Acquired absence of other specified parts of digestive tract; Z98.890 Other specified postprocedural states; Z88.6 Allergy status to analgesic agent; Z88.5 Allergy status to narcotic agent; Z79.899 Other long term (current) drug therapy; W10.9XXA Fall (on) (from) unspecified stairs and steps, initial encounter; Y93.89 Activity, other specified; Y92.89 Other specified places as the place of occurrence of the external cause; Y99.8 Other external cause status
CPT/HCPCS: 71101; 72100; 96372; 99283; J1885; J2270

== ENCOUNTER 2019-06-14 06:52 | Emergency (ER) | payer OTHER ==
[~2019-06-14] VITALS: Ht 162.6 cm; Wt 57.4 kg
--- NOTE | 2019-06-14 07:12 | NUR ---
Patient ambulated to bed 8. RN evaluating patient at bedside.
[2019-06-14 07:14] VITALS: BP 118/56
--- NOTE | 2019-06-14 07:26 | NUR ---
PATIENT PRESENTS TO ED WITH C/O SHARP LOWER BACK PAIN 03/27. N/V/D X 1 DAY. PT STATES THAT SHE WAS SEEN AT [facility] YESTERDAY AND WAS TOLD THAT SHE HAD BLOOD AND URINE IN STOOL. PT VERBALZIED NO PAIN, URGENCY, OR BLOOD NOTED DURING URINATION. SKIN IS PINK/WARM/DRY; PT PRESENTS WITH CLEAR SPEECH, EVEN AND STEADY GAIT; HR EVEN AND REGULAR; PT DENIES ANY FEVER, CP, SOB, OR COUGH AT THIS TIME; VSS; PATIENT POSITIONED FOR COMFORT; HOB ELEVATED; BEDRAILS UP X1; BED DOWN. ER MD TO SEE PT. HX: KIDNEY STONES, BIPOLAR, SCHIZOPHRENIA, HTN, ANXIETY, ASHTMA, HIGH CHOLESTEROL RX: VALPORIC ACID, RISPERDAL, BUSPAR ALLERGY: TYLENOL 3
--- NOTE | 2019-06-14 07:31 | NUR ---
Dr. Tillman evaluating patient at bedside.
[2019-06-14] MEDS ORDERED: ONDANSETRON 4 MG ODT PO ONE (07:40)
[2019-06-14] MEDS ORDERED: FAMOTIDINE 20 MG TAB PO ONE (07:40)
[2019-06-14] MEDS ORDERED: KETOROLAC 30 MG/ML VIAL IM ONE (07:40)
--- NOTE | 2019-06-14 08:33 | NUR ---
Patient discharged with v/s stable. Written and verbal after care instructions given and explained. Patient alert, oriented and verbalized understanding of instructions. Ambulatory with steady gait. All questions addressed prior to discharge. ID band removed. Patient advised to follow up with PMD. Rx of ZOFRAN AND LOMOTIL given. Patient educated on indication of medication including possible reaction and side effects. Opportunity to ask questions provided and answered. PT GIVEN BUS VOUCHER.
[2019-06-14 08:34] VITALS: BP 118/56
== END 2019-06-14 08:32 | disposition home or self-care (01) ==
LOC: MED 06:52
DX: R11.2 Nausea with vomiting, unspecified (principal); R19.7 Diarrhea, unspecified; M54.9 Dorsalgia, unspecified; G89.29 Other chronic pain; F17.210 Nicotine dependence, cigarettes, uncomplicated; J45.909 Unspecified asthma, uncomplicated; I10 Essential (primary) hypertension; F31.9 Bipolar disorder, unspecified; F41.9 Anxiety disorder, unspecified; F20.9 Schizophrenia, unspecified; Z86.69 Personal history of other diseases of the nervous system and sense organs; Z86.39 Personal history of other endocrine, nutritional and metabolic disease; Z98.890 Other specified postprocedural states; Z90.49 Acquired absence of other specified parts of digestive tract; Z98.51 Tubal ligation status; Z71.6 Tobacco abuse counseling; Z79.899 Other long term (current) drug therapy; Z88.6 Allergy status to analgesic agent; Z88.5 Allergy status to narcotic agent
CPT/HCPCS: 81002; 81025; 96372; 99283; J1885; Q0162

== ENCOUNTER 2019-06-18 16:50 | Emergency (ER) | payer OTHER ==
[~2019-06-18] VITALS: Ht 162.6 cm; Wt 57.2 kg
[2019-06-18 17:08] VITALS: BP 108/48
--- NOTE | 2019-06-18 17:15 | NUR ---
PT TO [facility], UNABLE TO GIVE URINE AT THIS TIME, PT ALERT AND AWAKE
[2019-06-18 19:44] LABS: APPEARANCE,URINE CLEAR (CLEAR); BILIRUBIN,URINE NEGATIVE (NEGATIVE); BLOOD, URINE NEGATIVE (NEGATIVE); COLOR,URINE YELLOW (YELLOW); LEUKOCYTE ESTERASE ,URINE NEGATIVE (NEGATIVE); NITRITE, URINE NEGATIVE (NEGATIVE); PH,URINE 6.5 (5.0-9.0); UGLUCOSE NEGATIVE (NEGATIVE)
[2019-06-18 20:03] LABS: BASOPHILS % (AUTO) 0.6 % (0.0-2.0); EOSINOPHILS # (AUTO) 0.2 K/uL (0-0.4); EOSINOPHILS % (AUTO) 2.7 % (0.0-4.0); HEMATOCRIT 38.2 % (36-48); HEMOGLOBIN 12.4 g/dL (12.0-16.0); LYMPHOCYTES # (AUTO) 2.2 K/uL (2.5-16.5); LYMPHOCYTES % (AUTO) 35.9 % (20.5-51.1); MEAN CORPUSCULAR HEMOGLOBIN 29 pg (27-31); MEAN CORPUSCULAR HGB CONC 33 g/dL (33-37); MEAN CORPUSCULAR VOLUME 90.2 fL (80-94); MONOCYTES # (AUTO) 0.5 K/uL (0.8-1.0); MONOCYTES % (AUTO) 7.8 % (1.7-9.3); NEUTROPHILS # (AUTO) 3.2 K/uL (1.8-7.7); PLATELET COUNT (AUTO) 251 K/uL (140-450); RED BLOOD CELL COUNT(AUTO) 4.23 MIL/uL (4.20-5.40); RED CELL DISTRIBUTION WIDTH 16.8 % (11.6-13.7); WHITE BLOOD COUNT (AUTO) 6.1 K/uL (4.8-10.8)
--- NOTE | 2019-06-18 20:23 | NUR ---
49 Y/O FEMALE C/O ABD PAIN WITH N/V/D X 1-2 WEEKS. PT STATES SHE PASSED BLOOD WITH 2 BOWEL MOVEMENTS. PT. A/OX4; FOLLOWS COMMANDS; BERATHING IS UNLABORED AND SYMMETRICAL. ABLE TO AMBULATE WITHOUT ASSISTANCE. GI: ABDOMEN IS SOFT AND ROUND; ABDOMINAL SOUNDS HEARD THROUGHOUT ALL FOUR QUADRANTS; PATIENT ALSO STATES, "IT PÉREZ WHEN I PEE; MY PAIN IS A 7/10 STARTING IN MY LOWER ABDOMEN AND MOVING TO THE SIDES AND BACK". ERMD MADE AWARE OF STATUS. SIDE RAILSX1. WILL CONTINUE TO MONITOR PMH- BIPOLAR, SCHIZO, ASTHMA, SEIZURES, HTN, HIGH CHOLESTEROL, ANXIETY ALLERGIES: SEE MED REC. RX: SEE MED REC.
--- NOTE | 2019-06-18 20:25 | NUR ---
PT AMBULATED TO ER BED 09
[2019-06-18 20:48] LABS: ANION GAP 11.7 (8-16); CREATININE 0.8 mg/dL (0.6-1.3); POTASSIUM 3.7 mmol/L (3.5-5.1); TOTAL BILIRUBIN 0.3 mg/dL (0.0-1.0)
[2019-06-18 20:49] LABS: ALBUMIN 3.5 g/dL (3.4-5.0)
--- NOTE | 2019-06-18 22:35 | NUR ---
PATIENT IS IN NO DISTRESS AT THIS TIME. QUIETLY SLEEPING IN BED. WILL CONTINUE TO MONITOR.
--- NOTE | 2019-06-18 23:17 | NUR ---
PATIENT IS ASLEEP AND IN NO DISTRESS AT THIS TIME. WILL CONTINUE TO MONITOR.
--- NOTE | 2019-06-19 00:08 | NUR ---
Eddi jarvis in [facility] - 06/19/19 at 0014 by IBETH PATIENT IS QUIETLY EATING IN BED. WILL CONTINUE TO MONITOR.
--- NOTE | 2019-06-19 00:14 | NUR ---
PATIENT IS SLEEPING AT THIS TIME. WILL CONTINUE TO MONITOR.
[2019-06-19 02:31] VITALS: BP 107/60
== END 2019-06-19 02:20 | disposition home or self-care (01) ==
LOC: MED 16:50
DX: R11.10 Vomiting, unspecified (principal); R19.7 Diarrhea, unspecified; J45.909 Unspecified asthma, uncomplicated; I10 Essential (primary) hypertension; F31.9 Bipolar disorder, unspecified; F20.9 Schizophrenia, unspecified; F41.9 Anxiety disorder, unspecified; E78.00 Pure hypercholesterolemia, unspecified; Z86.69 Personal history of other diseases of the nervous system and sense organs; Z90.49 Acquired absence of other specified parts of digestive tract; Z98.51 Tubal ligation status; Z86.39 Personal history of other endocrine, nutritional and metabolic disease; Z79.899 Other long term (current) drug therapy; Z88.6 Allergy status to analgesic agent; Z88.5 Allergy status to narcotic agent
CPT/HCPCS: 36415; 80053; 81003; 81025; 83690; 85025; 99283

== ENCOUNTER 2019-08-04 07:13 | Emergency (ER) | payer OTHER ==
[~2019-08-04] VITALS: Ht 162.6 cm; Wt 62.1 kg
[2019-08-04 07:21] VITALS: BP 114/73
--- NOTE | 2019-08-04 07:30 | NUR ---
Patient ambulated to bed 12. RN evaluating patient at bedside.
[2019-08-04] MEDS ORDERED: NACL 0.9% 1,000 ML IV SCH (07:37)
[2019-08-04] MEDS ORDERED: FAMOTIDINE 20 MG TAB PO ONE (07:40)
[2019-08-04] MEDS ORDERED: GLYCOPYRROLATE 0.2 MG/ML VIAL IV ONE (07:40)
[2019-08-04] MEDS ORDERED: HYDROcodone/APAP 5/325 MG 1 TAB TAB PO ONE (07:40)
[2019-08-04] MEDS ORDERED: KETOROLAC 30 MG/ML VIAL IVP ONE (07:40)
[2019-08-04] MEDS ORDERED: NACL 0.9% 1,000 ML IV ONE (07:48)
[2019-08-04] MEDS ORDERED: ONDANSETRON 4 MG/2 ML VIAL IVP ONE (07:50)
[2019-08-04 08:33] LABS: APPEARANCE,URINE CLEAR (CLEAR); BILIRUBIN,URINE NEGATIVE (NEGATIVE); BLOOD, URINE NEGATIVE (NEGATIVE); COLOR,URINE YELLOW (YELLOW); LEUKOCYTE ESTERASE ,URINE NEGATIVE (NEGATIVE); NITRITE, URINE NEGATIVE (NEGATIVE); PH,URINE 6.5 (5.0-9.0); UGLUCOSE NEGATIVE (NEGATIVE)
[2019-08-04 08:37] LABS: ANION GAP 16.1 (8-16); CARBON DIOXIDE 24.8 mmol/L (21-32); POTASSIUM 3.9 mmol/L (3.5-5.1)
[2019-08-04 08:38] LABS: BASOPHILS % (AUTO) 0.5 % (0.0-2.0); EOSINOPHILS # (AUTO) 0.2 K/uL (0-0.4); EOSINOPHILS % (AUTO) 2.3 % (0.0-4.0); HEMATOCRIT 38.7 % (36-48); HEMOGLOBIN 12.8 g/dL (12.0-16.0); LYMPHOCYTES # (AUTO) 3.1 K/uL (2.5-16.5); LYMPHOCYTES % (AUTO) 38.4 % (20.5-51.1); MEAN CORPUSCULAR HEMOGLOBIN 30 pg (27-31); MEAN CORPUSCULAR HGB CONC 33 g/dL (33-37); MONOCYTES # (AUTO) 0.5 K/uL (0.8-1.0); MONOCYTES % (AUTO) 5.8 % (1.7-9.3); NEUTROPHILS # (AUTO) 4.4 K/uL (1.8-7.7); PLATELET COUNT (AUTO) 245 K/uL (140-450); RED BLOOD CELL COUNT(AUTO) 4.25 MIL/uL (4.20-5.40); RED CELL DISTRIBUTION WIDTH 16.1 % (11.6-13.7); WHITE BLOOD COUNT (AUTO) 8.2 K/uL (4.8-10.8)
--- NOTE | 2019-08-04 08:42 | NUR ---
pt came to er with c/o lower abd/back pain x1 day. per pt, she saw her dr yesterday and was told her "bladder is dropping". per pt , she has pain at the lower abdomen. states she had chills and fever yesterday at home. taking levofloxacin abx oral meds at home prescribed from the doctor that she visited yesterday. pt aox4, able to communictae well. medicated with meds as ordered. per pt, has no allergy to norco. ivf infusing well. iv site at lf wrist 24 g. pt stable at this time. will continue to monitor pt. hx: bipolar, schizophrenia, htn rx: latuda, buspar, valium
[2019-08-04 08:44] LABS: ALBUMIN 3.5 g/dL (3.4-5.0); TOTAL BILIRUBIN 0.2 mg/dL (0.0-1.0)
--- NOTE | 2019-08-04 08:55 | NUR ---
Patient taken to CT scan via wheelchair by tech.
[2019-08-04 10:40] VITALS: BP 120/75
--- NOTE | 2019-08-04 10:40 | NUR ---
Patient discharged with v/s stable. Written and verbal after care instructions given and explained. Patient alert, oriented and verbalized understanding of instructions. Ambulatory with steady gait. All questions addressed prior to discharge. ID band removed. Patient advised to follow up with PMD. Rx of TRAMADOL AND BENTYL given. Patient educated on indication of medication including possible reaction and side effects. Opportunity to ask questions provided and answered.
--- NOTE | 2019-08-04 11:18 | NUR ---
Pt provided with a bus pass.
== END 2019-08-04 10:40 | disposition home or self-care (01) ==
LOC: MED 07:13
DX: N20.9 Urinary calculus, unspecified (principal); J45.909 Unspecified asthma, uncomplicated; K21.9 Gastro-esophageal reflux disease without esophagitis; I10 Essential (primary) hypertension; F20.9 Schizophrenia, unspecified; F31.9 Bipolar disorder, unspecified; E03.9 Hypothyroidism, unspecified; E78.5 Hyperlipidemia, unspecified; R19.7 Diarrhea, unspecified; F41.9 Anxiety disorder, unspecified; Z87.19 Personal history of other diseases of the digestive system; Z90.49 Acquired absence of other specified parts of digestive tract; Z87.448 Personal history of other diseases of urinary system; Z79.899 Other long term (current) drug therapy; Z88.5 Allergy status to narcotic agent
CPT/HCPCS: 36415; 74176; 80053; 81003; 81025; 82150; 83690; 85025; 96361; 96374; 96375; 99284; J1885; J2405; J3490; J7030

== ENCOUNTER 2019-10-31 07:41 | Emergency (ER) | payer OTHER ==
[~2019-10-31] VITALS: Ht 162.6 cm; Wt 62.1 kg
[2019-10-31 07:43] VITALS: BP 105/66
--- NOTE | 2019-10-31 07:45 | NUR ---
PT REPORTS HX OF SEIZURES, LAST SEIZURE X3 YEARS AGO. SEIZURE PRECAUTIONS IN PLACE
--- NOTE | 2019-10-31 07:46 | NUR ---
BIBA TAKEN TO BED 6
--- NOTE | 2019-10-31 07:48 | NUR ---
EKG BEING DONE AT BEDSIDE
--- NOTE | 2019-10-31 07:49 | NUR ---
49 Y/O FEMALE BIBA ALS C/O MID-STERNAL CHEST PAIN X 1 DAY/ANXIETY/BACK PAIN. PT DENIES ANY TRAUMA. PT ABLE TO AMBULATE TO BED 6 WITH STEADY GAIT. RR EVEN AND UNLABORED. PER PT + N/V/D; SKIN IS PINK/WARM/DRY; AAOX4 ; PT DENIES ANY FEVER, SOB, OR COUGH AT THIS TIME; PATIENT STATES BACK PAIN OF 5/10 AT THIS TIME; ER MD MADE AWARE OF PT STATUS. PT PLACED ON MONITOR. BED LOW AND LOCKED, 2 SIDERAILS UP WITH SEIZURE PRECAUTIONS, VSS. MEDICAL HX: HTN/ASTHMA/SEIZURES/BIPOLAR/SCHIZOPHRENIA ALLERGY: CODEINE/PROPOXYPHENE .
[2019-10-31] MEDS ORDERED: ASPIRIN 81 MG TAB.CHEW PO ONE (07:50)
[2019-10-31] MEDS ORDERED: DIAZ5TAB7 PO (07:54)
[2019-10-31] MEDS ORDERED: OLAN15TA1 PO (07:54)
[2019-10-31] MEDS ORDERED: DIT5 PO (07:54)
[2019-10-31] MEDS ORDERED: METO25TE2 PO (07:54)
[2019-10-31] MEDS ORDERED: PANT40EC PO (07:54)
[2019-10-31] MEDS ORDERED: COG1 PO (07:54)
[2019-10-31] MEDS ORDERED: GABA300C PO (07:54)
[2019-10-31] MEDS ORDERED: ALBU0.0912 IH (07:54)
--- NOTE | 2019-10-31 07:56 | NUR ---
AT BEDSIDE EXAMINING PT
--- NOTE | 2019-10-31 08:00 | NUR ---
RADIOLOGY AT BEDSIDE
[2019-10-31 08:41] LABS: BASOPHILS % (AUTO) 0.6 % (0.0-2.0); EOSINOPHILS # (AUTO) 0.1 K/uL (0-0.4); EOSINOPHILS % (AUTO) 2.3 % (0.0-4.0); HEMATOCRIT 36.9 % (36-48); HEMOGLOBIN 12.5 g/dL (12.0-16.0); LYMPHOCYTES # (AUTO) 2.4 K/uL (2.5-16.5); MEAN CORPUSCULAR HEMOGLOBIN 32 pg (27-31); MEAN CORPUSCULAR HGB CONC 34 g/dL (33-37); MEAN CORPUSCULAR VOLUME 93.1 fL (80-94); MONOCYTES # (AUTO) 0.3 K/uL (0.8-1.0); MONOCYTES % (AUTO) 5.8 % (1.7-9.3); NEUTROPHILS # (AUTO) 2.8 K/uL (1.8-7.7); NEUTROPHILS % (AUTO) 49.3 % (42.2-75.2); PLATELET COUNT (AUTO) 214 K/uL (140-450); RED BLOOD CELL COUNT(AUTO) 3.97 MIL/uL (4.20-5.40); RED CELL DISTRIBUTION WIDTH 14.1 % (11.6-13.7); WHITE BLOOD COUNT (AUTO) 5.8 K/uL (4.8-10.8)
--- NOTE | 2019-10-31 08:42 | NUR ---
PT RESTING IN BED IN POSITION OF COMFORT, 2 SIDERAILS UP, BED LOW AND LOCKED, SEIZURE PADDING IN PLACE, VSS. WILL CONTINUE TO MONITOR.
[2019-10-31 08:46] LABS: ANION GAP 12.7 (8-16); CARBON DIOXIDE 28.7 mmol/L (21-32); CREATININE 0.9 mg/dL (0.6-1.3); POTASSIUM 3.4 mmol/L (3.5-5.1)
[2019-10-31 08:52] LABS: ALBUMIN 3.1 g/dL (3.4-5.0); TOTAL BILIRUBIN 0.2 mg/dL (0.0-1.0)
--- NOTE | 2019-10-31 09:37 | NUR ---
PT WAITING FOR DISCHARGE, RESTING IN BED IN POSITION OF COMFORT, BED LOW AND LOCKED, 2 SIDERAILS UP WITH SEIZURE PADS. VSS. WILL CONTINUE TO MONITOR.
[2019-10-31 09:40] VITALS: BP 96/60
== END 2019-10-31 09:40 | disposition home or self-care (01) ==
LOC: MED 07:41
DX: R07.89 Other chest pain (principal); J45.909 Unspecified asthma, uncomplicated; K21.9 Gastro-esophageal reflux disease without esophagitis; Z87.448 Personal history of other diseases of urinary system; I10 Essential (primary) hypertension; E07.9 Disorder of thyroid, unspecified; Z88.5 Allergy status to narcotic agent; Z88.1 Allergy status to other antibiotic agents; Z79.899 Other long term (current) drug therapy
CPT/HCPCS: 36415; 71045; 80053; 84484; 85025; 93005; 99285; Q0092

== ENCOUNTER 2020-02-16 05:42 | Emergency (ER) | payer OTHER ==
[~2020-02-16] VITALS: Ht 162.6 cm; Wt 61.2 kg
[~2020-02-16 05:42] MED LIST changes: +ALBU0.0912 IH; +COG1 PO; +DIAZ5TAB7 PO; +DIT5 PO; +GABA300C PO; +METO25TE2 PO; +OLAN15TA1 PO; +PANT40EC PO
[2020-02-16 05:48] VITALS: BP 121/69
--- NOTE | 2020-02-16 05:56 | NUR ---
PT TO BED 12, ASSUME CARE TO CARLOS MANUEL BAKER
[2020-02-16] MEDS ORDERED: KETOROLAC 60 MG/2 ML VIAL IM ONE (06:10)
[2020-02-16 06:37] VITALS: BP 121/69
--- NOTE | 2020-02-16 06:37 | NUR ---
PT LEFT BEFORE SIGNING DISCHARGE PAPERWORK, SO PT DID NOT WAIT FOR HER DC RX/PAPERWORK;
--- NOTE | 2020-02-16 06:43 | NUR ---
49 Y/O FEMALE C/O RIGHT SHOULDER PAIN 09/27; PT STATED WAS SEEN AT [facility] TREATED AND DISCHARGED AND NO FRACTURE ON THE XRAY. PMH: PT DID NOT STATE ALLERGY: CODEINE/PROPOXYPHENE
== END 2020-02-16 06:37 | disposition home or self-care (01) ==
LOC: MED 05:42
DX: S43.401A Unspecified sprain of right shoulder joint, initial encounter (principal); J45.909 Unspecified asthma, uncomplicated; K21.9 Gastro-esophageal reflux disease without esophagitis; I10 Essential (primary) hypertension; E07.9 Disorder of thyroid, unspecified; Z79.899 Other long term (current) drug therapy; Z88.5 Allergy status to narcotic agent; Z88.8 Allergy status to other drugs, medicaments and biological substances; W19.XXXA Unspecified fall, initial encounter; Y93.89 Activity, other specified; Y92.89 Other specified places as the place of occurrence of the external cause; Y99.8 Other external cause status
CPT/HCPCS: 96372; 99283; J1885

== ENCOUNTER 2020-03-21 10:42 | Emergency (ER) | payer OTHER ==
[~2020-03-21] VITALS: Ht 162.6 cm; Wt 55.8 kg
[2020-03-21 10:46] VITALS: BP 113/63
[2020-03-21] MEDS ORDERED: KETOROLAC 30 MG/ML VIAL IM ONE (11:20)
[2020-03-21 11:40] LABS: BASOPHILS % (AUTO) 0.6 % (0.0-2.0); EOSINOPHILS # (AUTO) 0.1 K/uL (0-0.4); EOSINOPHILS % (AUTO) 1.6 % (0.0-4.0); HEMATOCRIT 38.9 % (36-48); HEMOGLOBIN 12.8 g/dL (12.0-16.0); LYMPHOCYTES # (AUTO) 2.3 K/uL (2.5-16.5); LYMPHOCYTES % (AUTO) 43.4 % (20.5-51.1); MEAN CORPUSCULAR HEMOGLOBIN 30 pg (27-31); MEAN CORPUSCULAR HGB CONC 33 g/dL (33-37); MEAN CORPUSCULAR VOLUME 91.7 fL (80-94); MONOCYTES # (AUTO) 0.3 K/uL (0.8-1.0); MONOCYTES % (AUTO) 6.1 % (1.7-9.3); NEUTROPHILS # (AUTO) 2.5 K/uL (1.8-7.7); NEUTROPHILS % (AUTO) 48.3 % (42.2-75.2); PLATELET COUNT (AUTO) 216 K/uL (140-450); RED BLOOD CELL COUNT(AUTO) 4.24 MIL/uL (4.20-5.40); RED CELL DISTRIBUTION WIDTH 13.7 % (11.6-13.7); WHITE BLOOD COUNT (AUTO) 5.2 K/uL (4.8-10.8)
[2020-03-21 11:51] LABS: ALBUMIN 3.3 g/dL (3.4-5.0); ANION GAP 11.6 (8-16); CARBON DIOXIDE 28.2 mmol/L (21-32); CREATININE 0.9 mg/dL (0.6-1.3); POTASSIUM 3.8 mmol/L (3.5-5.1); TOTAL BILIRUBIN 0.3 mg/dL (0.0-1.0)
[2020-03-21 12:10] LABS: APPEARANCE,URINE HAZY (CLEAR); BILIRUBIN,URINE NEGATIVE (NEGATIVE); BLOOD, URINE TRACE-I (NEGATIVE); LEUKOCYTE ESTERASE ,URINE 1+ (NEGATIVE); NITRITE, URINE POSITIVE (NEGATIVE); UGLUCOSE NEGATIVE (NEGATIVE)
[2020-03-21 12:32] LABS: COLOR,URINE YELLOW (YELLOW)
[2020-03-21 12:34] LABS: RBC,URINE NONE SEEN /HPF (0-5)
[2020-03-21 13:09] VITALS: BP 108/60
== END 2020-03-21 13:09 | disposition home or self-care (01) ==
LOC: MED 10:42
DX: N39.0 Urinary tract infection, site not specified (principal); J45.909 Unspecified asthma, uncomplicated; I10 Essential (primary) hypertension; K21.9 Gastro-esophageal reflux disease without esophagitis; E07.9 Disorder of thyroid, unspecified; F20.9 Schizophrenia, unspecified; Z90.49 Acquired absence of other specified parts of digestive tract; Z79.899 Other long term (current) drug therapy; Z88.5 Allergy status to narcotic agent; Z88.8 Allergy status to other drugs, medicaments and biological substances
CPT/HCPCS: 36415; 74176; 80053; 81001; 81025; 85025; 87086; 96372; 99284; J1885

== ENCOUNTER 2020-04-18 09:35 | Emergency (ER) | payer OTHER ==
[~2020-04-18] VITALS: Ht 162.6 cm; Wt 57.6 kg
[2020-04-18 09:41] VITALS: BP 101/81
--- NOTE | 2020-04-18 09:46 | NUR ---
PATIENT AMBULATED WITH STEADY GAIT TO BED 3.
--- NOTE | 2020-04-18 09:59 | NUR ---
50 Y/O FEMALE C/O BILAT FLANK PAIN X3 DAYS WITH DYSURIA AND FREQUENCY. LOWER BACK TENDERNESS WITH SUPRAPUBIC PAIN 5/10. PT HAS NOT TAKEN ANY PAIN MEDICATION. DENIES ANY FOUL ODOR OR VAGINAL DISCHARGE. NO N/V REPORTED. CAP REFILL <3. SKIN COOL/DRY/INTACT.
[2020-04-18] MEDS ORDERED: ONDANSETRON 4 MG/2 ML VIAL IVP ONE (10:00)
[2020-04-18] MEDS ORDERED: MORPHINE SULFATE 4 MG/ML SYR IVP ONE (10:00)
[2020-04-18] MEDS ORDERED: NACL 0.9% 1,000 ML IV ONE (10:00)
[2020-04-18 10:59] LABS: BASOPHILS % (AUTO) 0.5 % (0.0-2.0); EOSINOPHILS % (AUTO) 0.9 % (0.0-4.0); HEMATOCRIT 35.4 % (36-48); HEMOGLOBIN 11.7 g/dL (12.0-16.0); LYMPHOCYTES # (AUTO) 2.5 K/uL (2.5-16.5); LYMPHOCYTES % (AUTO) 43.3 % (20.5-51.1); MEAN CORPUSCULAR HEMOGLOBIN 30 pg (27-31); MEAN CORPUSCULAR HGB CONC 33 g/dL (33-37); MEAN CORPUSCULAR VOLUME 91.2 fL (80-94); MONOCYTES # (AUTO) 0.4 K/uL (0.8-1.0); MONOCYTES % (AUTO) 6.7 % (1.7-9.3); NEUTROPHILS # (AUTO) 2.8 K/uL (1.8-7.7); NEUTROPHILS % (AUTO) 48.6 % (42.2-75.2); PLATELET COUNT (AUTO) 237 K/uL (140-450); RED BLOOD CELL COUNT(AUTO) 3.88 MIL/uL (4.20-5.40); RED CELL DISTRIBUTION WIDTH 13.7 % (11.6-13.7); WHITE BLOOD COUNT (AUTO) 5.7 K/uL (4.8-10.8)
--- NOTE | 2020-04-18 11:02 | NUR ---
PT TAKEN TO CT VIA WHEELCHAIR
[2020-04-18 11:21] LABS: ALBUMIN 3.4 g/dL (3.4-5.0); ANION GAP 14.2 (8-16); CARBON DIOXIDE 26.4 mmol/L (21-32); CREATININE 0.7 mg/dL (0.6-1.3); POTASSIUM 3.6 mmol/L (3.5-5.1); TOTAL BILIRUBIN 0.2 mg/dL (0.0-1.0)
[2020-04-18 11:25] LABS: APPEARANCE,URINE CLEAR (CLEAR); BILIRUBIN,URINE NEGATIVE (NEGATIVE); BLOOD, URINE 2+ (NEGATIVE); COLOR,URINE YELLOW (YELLOW); LEUKOCYTE ESTERASE ,URINE 1+ (NEGATIVE); NITRITE, URINE NEGATIVE (NEGATIVE); UGLUCOSE NEGATIVE (NEGATIVE)
[2020-04-18 11:36] LABS: RBC,URINE 0-5 /HPF (0-5)
[2020-04-18 12:28] VITALS: BP 110/79
--- NOTE | 2020-04-18 12:29 | NUR ---
Patient discharged with v/s stable. Written and verbal after care instructions given and explained. Patient alert, oriented and verbalized understanding of instructions. Ambulatory with steady gait. All questions addressed prior to discharge. ID band removed. Patient advised to follow up with PMD. Rx of CEPHALEXIN, NAPROSYN given. Patient educated on indication of medication including possible reaction and side effects. Opportunity to ask questions provided and answered.
== END 2020-04-18 12:29 | disposition home or self-care (01) ==
LOC: MED 09:35
DX: N12 Tubulo-interstitial nephritis, not specified as acute or chronic (principal); J45.909 Unspecified asthma, uncomplicated; K21.9 Gastro-esophageal reflux disease without esophagitis; I10 Essential (primary) hypertension; E07.9 Disorder of thyroid, unspecified; Z79.899 Other long term (current) drug therapy; Z88.8 Allergy status to other drugs, medicaments and biological substances
CPT/HCPCS: 36415; 74176; 80053; 81001; 85025; 87086; 96361; 96374; 96375; 99284; J2270; J2405; J7030

== ENCOUNTER 2020-05-13 08:25 | Emergency (ER) | payer OTHER ==
[~2020-05-13] VITALS: Ht 162.6 cm; Wt 61.2 kg
[2020-05-13 08:30] VITALS: BP 117/79
[2020-05-13] MEDS ORDERED: KETOROLAC 60 MG/2 ML VIAL IM ONE (08:50)
[2020-05-13] MEDS ORDERED: LORazepam 1 MG TAB PO ONE (08:50)
[2020-05-13 09:20] VITALS: BP 98/67
== END 2020-05-13 09:20 | disposition home or self-care (01) ==
LOC: MED 08:25
DX: N12 Tubulo-interstitial nephritis, not specified as acute or chronic (principal); R11.2 Nausea with vomiting, unspecified; R19.7 Diarrhea, unspecified; E07.9 Disorder of thyroid, unspecified; F20.9 Schizophrenia, unspecified; I10 Essential (primary) hypertension; J45.909 Unspecified asthma, uncomplicated; K21.9 Gastro-esophageal reflux disease without esophagitis; R56.9 Unspecified convulsions; N28.9 Disorder of kidney and ureter, unspecified; Z88.6 Allergy status to analgesic agent; Z88.5 Allergy status to narcotic agent; Z79.899 Other long term (current) drug therapy; Z90.49 Acquired absence of other specified parts of digestive tract; Z98.890 Other specified postprocedural states
CPT/HCPCS: 81002; 81025; 96372; 99283; J1885

== ENCOUNTER 2020-06-23 12:14 | Emergency (ER) | payer OTHER ==
[~2020-06-23] VITALS: Ht 162.6 cm; Wt 54.6 kg
[2020-06-23 12:18] VITALS: BP 105/70
[2020-06-23 12:43] LABS: APPEARANCE,URINE CLOUDY (CLEAR); BILIRUBIN,URINE 1+ (NEGATIVE); BLOOD, URINE TRACE-I (NEGATIVE); COLOR,URINE DARK YELLOW (YELLOW); LEUKOCYTE ESTERASE ,URINE 1+ (NEGATIVE); NITRITE, URINE NEGATIVE (NEGATIVE); UGLUCOSE NEGATIVE (NEGATIVE)
[2020-06-23 13:25] LABS: RBC,URINE 0-5 /HPF (0-5)
[2020-06-23] MEDS ORDERED: ALPRAZolam 0.5 MG TAB PO STA (13:41)
[2020-06-23] MEDS ORDERED: cephALEXin 500 MG CAP PO ONE (13:45)
[2020-06-23 14:18] VITALS: BP 105/70
== END 2020-06-23 14:18 | disposition home or self-care (01) ==
LOC: MED 12:14
DX: N39.0 Urinary tract infection, site not specified (principal); E03.9 Hypothyroidism, unspecified; I10 Essential (primary) hypertension; J45.909 Unspecified asthma, uncomplicated; K21.9 Gastro-esophageal reflux disease without esophagitis; N28.9 Disorder of kidney and ureter, unspecified; R56.9 Unspecified convulsions; Z88.6 Allergy status to analgesic agent; Z88.5 Allergy status to narcotic agent; Z79.899 Other long term (current) drug therapy
CPT/HCPCS: 81001; 87086; 99283

== ENCOUNTER 2020-07-10 11:02 | Emergency (ER) | payer OTHER ==
[~2020-07-10] VITALS: Ht 162.6 cm; Wt 54.4 kg
[2020-07-10 11:11] VITALS: BP 119/73
--- NOTE | 2020-07-10 11:14 | NUR ---
Patient ambulated to bed 7. RN evaluating the patient at bedside.
--- NOTE | 2020-07-10 11:23 | NUR ---
50 y/o female c/o RUQ abdominal painn 10/10 sharp constaant radiates to back, N/V X2days. Pt states she took harriett at home with no relief. Abdomen is soft, round, non-tender, bowel sounds present X4. PMH:asthma, HTN, anxiety, seizures, schizophrenia, bipolar RX: Gabapentin, seroquel, xanax, albuterol, depakote, and atorvostatin. Allergies to tynenol 3 and aricept
[2020-07-10] MEDS ORDERED: ONDANSETRON 4 MG ODT PO ONE (11:35)
[2020-07-10] MEDS ORDERED: HYDROcodone/APAP 5/325 MG 1 TAB TAB PO ONE (11:35)
[2020-07-10 12:34] VITALS: BP 119/73
--- NOTE | 2020-07-10 12:35 | NUR ---
Patient discharged with v/s stable. Written and verbal after care instructions given and explained. Patient alert, oriented and verbalized understanding of instructions. Ambulatory with steady gait. All questions addressed prior to discharge. ID band removed. Patient advised to follow up with PMD. Rx of Isola 5mg-325mg given. Patient educated on indication of medication including possible reaction and side effects. Opportunity to ask questions provided and answered.
== END 2020-07-10 12:35 | disposition home or self-care (01) ==
LOC: MED 11:02
DX: R10.11 Right upper quadrant pain (principal); G89.29 Other chronic pain; J45.909 Unspecified asthma, uncomplicated; I10 Essential (primary) hypertension; E78.5 Hyperlipidemia, unspecified; F20.9 Schizophrenia, unspecified; F41.9 Anxiety disorder, unspecified; Z88.5 Allergy status to narcotic agent; Z79.899 Other long term (current) drug therapy; Z88.8 Allergy status to other drugs, medicaments and biological substances
CPT/HCPCS: 99283; Q0162

== ENCOUNTER 2020-08-06 11:55 | Emergency (ER) | payer OTHER ==
[~2020-08-06] VITALS: Ht 162.6 cm; Wt 59.0 kg
[2020-08-06 12:54] VITALS: BP 107/72
--- NOTE | 2020-08-06 12:59 | NUR ---
PT TRIAGED. NOT IN ACUTE DISTRESS. WAITING IN LOBBY TO BE SEEN BY MD.
[2020-08-06] MEDS: KETOROLAC 30 MG/ML VIAL IM ONE (14:00)
[2020-08-06] MEDS: LIDOCAINE MPF 1% 10 MG/ML VIAL INJ ONE (14:19)
--- NOTE | 2020-08-06 14:37 | NUR ---
PT RIGHT PINKY TOE MIMA TAPPED TO 4TH DIGIT
[2020-08-06 14:58] VITALS: BP 107/72
== END 2020-08-06 14:59 | disposition home or self-care (01) ==
LOC: MED 11:55
DX: S93.134A Subluxation of interphalangeal joint of right lesser toe(s), initial encounter (principal); J45.909 Unspecified asthma, uncomplicated; I10 Essential (primary) hypertension; Z86.69 Personal history of other diseases of the nervous system and sense organs; Z79.899 Other long term (current) drug therapy; Z79.51 Long term (current) use of inhaled steroids; Z88.5 Allergy status to narcotic agent; W18.39XA Other fall on same level, initial encounter; Y92.89 Other specified places as the place of occurrence of the external cause; Y93.89 Activity, other specified; Y99.8 Other external cause status
CPT/HCPCS: 28660; 73610; 73630; 96372; 99284; J1885; J2001; 99285

== ENCOUNTER 2020-08-12 10:30 | Emergency (ER) | payer OTHER ==
[~2020-08-12] VITALS: Ht 160 cm; Wt 59.0 kg
[2020-08-12 12:15] VITALS: BP 114/72
--- NOTE | 2020-08-12 12:20 | NUR ---
C/O ANXIETY TODAY HX ANXIETY
[2020-08-12 13:20] VITALS: BP 114/72
--- NOTE | 2020-08-12 13:20 | NUR ---
Eddi jarvis in EDM - 08/12/20 at 1339 by MED1 PATIENT ELOPED FROM FACILITY. DISCHARGE INSTRUCTIONS NOT GIVEN TO PATIENT. DR. BARBER NOTIFIED.
--- NOTE | 2020-08-12 13:20 | NUR ---
Patient discharged with v/s stable. Written and verbal after care instructions given and explained. Patient alert, oriented and verbalized understanding of instructions. Ambulatory with steady gait. All questions addressed prior to discharge. ID band removed. Patient advised to follow up with PMD. Rx of MOTIN & ATIVAN given. Patient educated on indication of medication including possible reaction and side effects. Opportunity to ask questions provided and answered.
--- NOTE | 2020-08-12 13:39 | NUR ---
Eddi jarvis in [facility] [place] - 08/12/20 at 1652 by MED1 DC WITHOUT PAPER WORK
== END 2020-08-12 13:22 | disposition home or self-care (01) ==
LOC: MED 10:30
DX: F41.9 Anxiety disorder, unspecified (principal); Z76.0 Encounter for issue of repeat prescription; J45.909 Unspecified asthma, uncomplicated; I10 Essential (primary) hypertension; Z86.69 Personal history of other diseases of the nervous system and sense organs; Z79.899 Other long term (current) drug therapy; Z79.51 Long term (current) use of inhaled steroids; Z88.5 Allergy status to narcotic agent
CPT/HCPCS: 99283

== ENCOUNTER 2020-10-07 16:56 | Emergency (ER) | payer OTHER ==
[~2020-10-07] VITALS: Ht 162.6 cm; Wt 59.0 kg
[2020-10-07 16:58] VITALS: BP 101/66
--- NOTE | 2020-10-07 17:32 | NUR ---
50 YEAR OLD FEMALE COMPLAINS OF LOWER ABDOMINAL PAIN X 3 DAYS. PATIENT STATES LOCATION OF PAIN IS IN RIGHT/LEFT LOWER ABDOMINAL QUADRANTS, PAIN 10/10, CONTINUOUS, RADIATES TO LOWER BACK. PATIENT DENIES NAUSEA/VOMITING/DIARRHEA. NORMOACTIVE BOWEL SOUNDS HEARD THROUGHOUT. DENIES CHANGES IN URINE OR DISCOMFORT WHEN URINATING. PATIENT STATES PRESENCE OF BLOOD IN URINE. PATIENT STATED LST MENSTRUAL PERIOD OCCURRED THREE MONTHS AGO. AO4, BREATHING EVEN AND UNLABORED, SKIN WARM AND DRY. BED IN LOWEST POSITION, LOCKED, X1 SIDERAIL UP. PMH - SHIZOPHRENIA, BIPOLAR, PRESENCE OF CYST IN UTERUS AND LIVER X 1 YEAR AGO ALLERGY - NORCO
--- NOTE | 2020-10-07 18:25 | NUR ---
PELVIC EXAM GIVEN TO LAB
[2020-10-07 18:39] LABS: APPEARANCE,URINE CLEAR (CLEAR); BILIRUBIN,URINE NEGATIVE (NEGATIVE); BLOOD, URINE NEGATIVE (NEGATIVE); COLOR,URINE YELLOW (YELLOW); LEUKOCYTE ESTERASE ,URINE NEGATIVE (NEGATIVE); NITRITE, URINE NEGATIVE (NEGATIVE); PH,URINE 6.5 (5.0-9.0); UGLUCOSE NEGATIVE (NEGATIVE)
--- NOTE | 2020-10-07 19:24 | NUR ---
REPORT RECEIVED FROM MARGO BAKER FOR CONTINUITY OF CARE
[2020-10-07] MEDS ORDERED: KETOROLAC 15 MG/ML VIAL IM ONE (20:10)
[2020-10-07 20:19] VITALS: BP 101/66
== END 2020-10-07 20:19 | disposition home or self-care (01) ==
LOC: MED 16:56
DX: N93.9 Abnormal uterine and vaginal bleeding, unspecified (principal); J45.909 Unspecified asthma, uncomplicated; I10 Essential (primary) hypertension; Z88.5 Allergy status to narcotic agent; Z88.8 Allergy status to other drugs, medicaments and biological substances; Z79.899 Other long term (current) drug therapy
CPT/HCPCS: 36415; 76830; 81003; 81025; 87210; 96372; 99284; J1885; 87491

== ENCOUNTER 2020-11-08 16:52 | Emergency (ER) | payer OTHER ==
[~2020-11-08] VITALS: Ht 162.6 cm; Wt 62.1 kg
[2020-11-08 16:58] VITALS: BP 108/68
[2020-11-08] MEDS ORDERED: NAPR-1559 PO (17:35)
[2020-11-08] MEDS ORDERED: CEPH500C16 PO (17:35)
[2020-11-08 17:51] VITALS: BP 108/68
== END 2020-11-08 17:52 | disposition home or self-care (01) ==
LOC: MED 16:52
DX: L03.114 Cellulitis of left upper limb (principal); J45.909 Unspecified asthma, uncomplicated; I10 Essential (primary) hypertension; F20.9 Schizophrenia, unspecified; F32.9 Major depressive disorder, single episode, unspecified; Z88.8 Allergy status to other drugs, medicaments and biological substances; Z88.5 Allergy status to narcotic agent; Z79.899 Other long term (current) drug therapy; Z98.890 Other specified postprocedural states
CPT/HCPCS: 99283

== ENCOUNTER 2020-11-11 08:37 | Emergency (ER) | payer OTHER ==
[~2020-11-11] VITALS: Ht 162.6 cm; Wt 62.6 kg
[~2020-11-11 08:37] MED LIST changes: +CEPH500C16 PO; +NAPR-1559 PO
[2020-11-11 08:41] VITALS: BP 135/78
--- NOTE | 2020-11-11 08:54 | NUR ---
50 Y/O FEMALE BIB SELF C/O LEFT ARM PAIN S/P COVID VACCINE THAT WAS GIVEN ON FRIDAY. PATIENTS STATES AFTER RECEIVING VACCINE SHE BEGAN HAVING 9/10 ARM PAIN AT INJECTION SITE WELL SWELLING, PT WAS GIVEN ANTIBIOTICS ON FRIDAY FOR LEFT ARM SWELLING, AND PAIN IS NOW WORSENING. BRUISING NOTED TO LEFT ARM AREA. CMS+. ROM+ PMH: BIPOLAR, SCHIZOPHRENIA
[2020-11-11] MEDS ORDERED: HYDROcodone/APAP 5/325 MG 1 TAB TAB PO ONE (09:40)
[2020-11-11] MEDS ORDERED: NAPR-54 PO (09:42)
--- NOTE | 2020-11-11 09:50 | NUR ---
Patient discharged with v/s stable. Written and verbal after care instructions given and explained. Patient verbalized understanding. Ambulatory with steady gait. All questions addressed prior to discharge. Advised to follow up with PMD. Addendum: 11/11/20 at 0956 by [facility] PATIENT.
[2020-11-11 10:10] VITALS: BP 135/78
== END 2020-11-11 10:10 | disposition home or self-care (01) ==
LOC: MED 08:37
DX: L03.114 Cellulitis of left upper limb (principal); T50.B95A Adverse effect of other viral vaccines, initial encounter; Y92.89 Other specified places as the place of occurrence of the external cause
CPT/HCPCS: 99283

== ENCOUNTER 2020-11-26 13:08 | Emergency (ER) | payer OTHER ==
[~2020-11-26] VITALS: Ht 162.6 cm; Wt 63.0 kg
[~2020-11-26 13:08] MED LIST changes: +NAPR-54 PO
[2020-11-26 13:11] VITALS: BP 103/67
--- NOTE | 2020-11-26 13:13 | NUR ---
Patient ambulated to bed 5. RN evaluating the patient at bedside.
--- NOTE | 2020-11-26 13:35 | NUR ---
Urine sample collected, handed to matthew Rao tech.
--- NOTE | 2020-11-26 13:40 | NUR ---
50 y/o F coming in from home with c/c lower back pain x 3 days. Patient states acute onset of lower back pain for 3 days that is 9/10, sharp/constant, radiating to bilateral flank region. Patient states she feels "shakey" at this time. Patient states she thinks she has kidney stones; states she was seen by her PCP 2 weeks ago and prescribed Keflex for an "blood infection" which she completed treatment for 4 days ago. Patient states associated diarrhea two days ago. Patient denies any N/V, urinary symptoms, headache, dizziness, chest pain, blurry vision, fever/chills, cold, cough. Patient denies taking any mediation prior to arrival. laboratory monitor in place. Bed locked in lowest position, side rails x 1, call light in reach. PMH: Bipolar, schizophrenia Meds: Depakote, Buspar, Risperidal, Gabapentin Allergies: Darbazine, Tylenol with codeine Sx: Cholecystectomy, Leg surgery
--- NOTE | 2020-11-26 14:22 | NUR ---
Patient being evaluated by Dr. Sewell at bedside.
[2020-11-26] MEDS ORDERED: MORPHINE SULFATE 4 MG/ML SYR IVP ONE (14:25)
[2020-11-26] MEDS ORDERED: KETOROLAC 30 MG/ML VIAL IVP ONE (14:25)
--- NOTE | 2020-11-26 14:40 | NUR ---
Dr. Sewell is evaluating patient at bedside.
--- NOTE | 2020-11-26 14:45 | NUR ---
Patient presents awake laying on left side of bed with blanket. machine oiler in place. Respirations even/unlabored. Bed locked in lowest position, side rails x 1.
[2020-11-26 14:49] LABS: BARBITURATE, URINE NEGATIVE ng/ml (NEG <=200); BENZODIAZEPINE, URINE POSITIVE ng/mL (NEG <=200); CANNABINOID, URINE POSITIVE ng/mL (NEG <=50); COCAINE, URINE NEGATIVE ng/mL (NEG <=300); OPIATE, URINE NEGATIVE ng/mL (NEG <=2000); PHENCYCLIDINE SCREEN,URINE NEGATIVE ng/mL (NEG <=25)
[2020-11-26 15:30] LABS: APPEARANCE,URINE HAZY (CLEAR); BILIRUBIN,URINE NEGATIVE (NEGATIVE); BLOOD, URINE NEGATIVE (NEGATIVE); COLOR,URINE YELLOW (YELLOW); LEUKOCYTE ESTERASE ,URINE 3+ (NEGATIVE); NITRITE, URINE NEGATIVE (NEGATIVE); UGLUCOSE NEGATIVE (NEGATIVE)
[2020-11-26 15:32] LABS: RBC,URINE 0-5 /HPF (0-5); WBC,URINE 20-60 /HPF (0-5)
[2020-11-26] MEDS ORDERED: CEPH500C16 PO (15:38)
--- NOTE | 2020-11-26 15:40 | NUR ---
Patient requesting pain medication at this time. States pain 8/10 at this time. Respirations even/unlabored. Bed locked in lowest position, side rails x 1.
--- NOTE | 2020-11-26 15:45 | NUR ---
Dr. Sewell made aware of pain.
--- NOTE | 2020-11-26 15:56 | NUR ---
IV removed, catheter intact and site benign. Applied folded 4x4 gauze and tape to stop bleeding.
[2020-11-26 16:00] VITALS: BP 114/70
== END 2020-11-26 16:00 | disposition home or self-care (01) ==
LOC: MED 13:08
DX: N39.0 Urinary tract infection, site not specified (principal); F12.10 Cannabis abuse, uncomplicated; J45.909 Unspecified asthma, uncomplicated; I10 Essential (primary) hypertension; Z88.5 Allergy status to narcotic agent; Z88.8 Allergy status to other drugs, medicaments and biological substances
CPT/HCPCS: 80305; 81001; 81025; 87086; 96374; 96375; 99284; J1885; J2270

== ENCOUNTER 2020-12-05 07:37 | Emergency (ER) | payer OTHER ==
[~2020-12-05] VITALS: Ht 156.2 cm; Wt 62.1 kg
[2020-12-05 07:43] VITALS: BP 97/69
--- NOTE | 2020-12-05 07:59 | NUR ---
50 YEAR OLD FEMALE COMPLAINS OF LEFT BIG TOE PAIN X TODAY. PT STATES THAT SHE WAS MOVING FURNITURE AND IT LANDED ON BIG TOE. PT STATES LIMITED MOVEMENT, HARD TO AMBULATE DUE TO PAIN. SITE VISIBLY REDDENED. PT AOX4, BREATHING EVEN AND UNLABORED, SKIN WARM AND DRY. BED IN LOWEST POSITION, LOCKED, BED RAIL UPX1. PMH - BIPOLAR, GALLBLADER REMOVED, APPENDIX REMOVED ALLERGIES - CODEINE, HYDROCODONE, DARVOCET, DARBAZINE
[2020-12-05] MEDS ORDERED: KETOROLAC 30 MG/ML VIAL IM ONE (08:00)
--- NOTE | 2020-12-05 08:02 | NUR ---
telecommunications technician at bedside.
[2020-12-05] MEDS ORDERED: IBUP-2213 PO (08:46)
--- NOTE | 2020-12-05 09:05 | NUR ---
Patient discharged with v/s stable. Written and verbal after care instructions about contusion given and explained. Patient alert, oriented and verbalized understanding of instructions. Ambulatory with steady gait. All questions addressed prior to discharge. ID band removed. Patient advised to follow up with PMD. Rx of ibuprofen given. Patient educated on indication of medication including possible reaction and side effects. Opportunity to ask questions provided and answered.
[2020-12-05 09:06] VITALS: BP 136/78
== END 2020-12-05 09:05 | disposition home or self-care (01) ==
LOC: MED 07:37
DX: S90.112A Contusion of left great toe without damage to nail, initial encounter (principal); J45.909 Unspecified asthma, uncomplicated; I10 Essential (primary) hypertension; F31.9 Bipolar disorder, unspecified; F15.10 Other stimulant abuse, uncomplicated; F20.9 Schizophrenia, unspecified; W19.XXXA Unspecified fall, initial encounter; Y93.89 Activity, other specified; Y92.89 Other specified places as the place of occurrence of the external cause; Y99.8 Other external cause status
CPT/HCPCS: 73630; 96372; 99283; J1885

== ENCOUNTER 2021-03-21 09:43 | Emergency (ER) | payer OTHER, SELFPAY ==
[~2021-03-21] VITALS: Ht 162.6 cm; Wt 63.0 kg
[~2021-03-21 09:43] MED LIST changes: +IBUP-2213 PO
[2021-03-21 09:50] VITALS: BP 104/65
--- NOTE | 2021-03-21 10:35 | NUR ---
50 Y/O F BIB SELF FROM HOME, C/O N&V WITH DIARRHEA FOR 1 WEEK, PT STATES SHE TESTED POSITIVE FOR COVID 02/10/21. PT STATES SHE IS ALSO DEVELOPING BLISTERS. SKIN IS PINK/WARM/DRY; AAOX4 WITH EVEN AND STEADY GAIT; LUNGS CLEAR BL; HR EVEN AND REGULAR; PT DENIES ANY FEVER, CP, SOB, OR COUGH AT THIS TIME; PATIENT STATES PAIN OF 10/10, IN PERINEAL AREA AT THIS TIME; VSS; PATIENT POSITIONED FOR COMFORT; HOB ELEVATED; BEDRAILS UP X2; BED DOWN. ER MD MADE AWARE OF PT STATUS. PMH: ASTHMA, HTN, BIPOLAR, SEIZURE, SCHIZOPHRENIC ALLERGY: SEE LIST MED: DENIES
[2021-03-21] MEDS ORDERED: DIPHENOXYLATE /ATROPINE 2.5 MG TAB PO ONE (10:55)
[2021-03-21] MEDS ORDERED: ONDANSETRON 4 MG ODT PO ONE (10:55)
--- NOTE | 2021-03-21 11:34 | NUR ---
REFUSED BLOOD DRAW.
[2021-03-21] MEDS ORDERED: ONDA-24 PO (11:36)
[2021-03-21] MEDS ORDERED: ATRO1TAB PO (11:36)
--- NOTE | 2021-03-21 11:45 | NUR ---
NOVEL SWAB COLLECTED AND SENT TO LAB.
--- NOTE | 2021-03-21 11:45 | NUR ---
Patient discharged with v/s stable. Written and verbal after care instructions given and explained. Patient alert, oriented and verbalized understanding of instructions. Ambulatory with steady gait. All questions addressed prior to discharge. ID band removed. Patient advised to follow up with PMD. Rx of Zofran ODT and Lomotil given. Patient educated on indication of medication including possible reaction and side effects. Opportunity to ask questions provided and answered.
== END 2021-03-21 11:45 | disposition home or self-care (01) ==
LOC: MED 09:43
DX: R11.10 Vomiting, unspecified (principal); Z20.822 Contact with and (suspected) exposure to COVID-19; R19.7 Diarrhea, unspecified; J06.9 Acute upper respiratory infection, unspecified; J45.909 Unspecified asthma, uncomplicated; I10 Essential (primary) hypertension; F20.9 Schizophrenia, unspecified; F17.200 Nicotine dependence, unspecified, uncomplicated; F15.90 Other stimulant use, unspecified, uncomplicated; Z90.49 Acquired absence of other specified parts of digestive tract; Z98.890 Other specified postprocedural states; Z88.5 Allergy status to narcotic agent; Z88.8 Allergy status to other drugs, medicaments and biological substances
CPT/HCPCS: 81002; 81025; 99283; Q0162; U0003

== ENCOUNTER 2021-04-26 18:48 | Emergency (ER) | payer OTHER, SELFPAY ==
[~2021-04-26] VITALS: Ht 162.6 cm; Wt 56.7 kg
[~2021-04-26 18:48] MED LIST changes: +ATRO1TAB PO; +ONDA-24 PO
[2021-04-26 19:05] VITALS: BP 103/64
--- NOTE | 2021-04-26 19:08 | NUR ---
TO LOBBY A/W BED AMBULATORY
--- NOTE | 2021-04-26 22:42 | NUR ---
PT TAKEN TO CHAIR
--- NOTE | 2021-04-26 22:43 | NUR ---
Dr. De Jesus examining patient.
[2021-04-26] MEDS ORDERED: KETOROLAC 60 MG/2 ML VIAL IM ONE (22:55)
[2021-04-26] MEDS ORDERED: IBUP-2213 PO (23:05)
[2021-04-26 23:44] VITALS: BP 103/64
== END 2021-04-26 23:44 | disposition home or self-care (01) ==
LOC: MED 18:48
DX: S00.03XA Contusion of scalp, initial encounter (principal); J45.909 Unspecified asthma, uncomplicated; F20.9 Schizophrenia, unspecified; I10 Essential (primary) hypertension; W18.39XA Other fall on same level, initial encounter; Y93.89 Activity, other specified; Y92.89 Other specified places as the place of occurrence of the external cause; Y99.8 Other external cause status
CPT/HCPCS: 96372; 99283; J1885

== ENCOUNTER 2021-06-27 05:50 | Emergency (ER) | payer OTHER ==
[~2021-06-27] VITALS: Ht 162.6 cm; Wt 68.0 kg
[~2021-06-27 05:50] MED LIST changes: -NAPR-1559 PO; -NAPR-54 PO; +ONDA-188 PO; -ONDA-24 PO
[2021-06-27 05:54] VITALS: BP 111/49
--- NOTE | 2021-06-27 05:59 | NUR ---
AMBULATED TO BED 4 FROM TRIAGE
[2021-06-27] MEDS ORDERED: LORazepam 1 MG TAB PO ONE (06:10)
--- NOTE | 2021-06-27 06:31 | NUR ---
PATIENT CAME FOR LEFT LEG PAIN BUT SAYING THAT SHE FEEL VERY ANXIOUX WE GAVE ATIVAN 2 MG //DiCaprio RN
[2021-06-27] MEDS ORDERED: NAPR-54 PO (06:39)
--- NOTE | 2021-06-27 06:44 | NUR ---
PT CLEARED DR. DR. CRAWFORD. DISCHARGE INSTRUCTIONS AND MEDICATION ADMINISTRATION PROVIDED BY DR. CRAWFORD. RX OF NAPROSYN GIVEN.
== END 2021-06-27 06:44 | disposition home or self-care (01) ==
LOC: MED 05:50
DX: S86.911A Strain of unspecified muscle(s) and tendon(s) at lower leg level, right leg, initial encounter (principal); J45.909 Unspecified asthma, uncomplicated; I10 Essential (primary) hypertension; F31.9 Bipolar disorder, unspecified; Z88.5 Allergy status to narcotic agent; Z88.6 Allergy status to analgesic agent; Z79.899 Other long term (current) drug therapy; W19.XXXA Unspecified fall, initial encounter; Y93.89 Activity, other specified; Y92.89 Other specified places as the place of occurrence of the external cause; Y99.8 Other external cause status
CPT/HCPCS: 73590; 99283; Q0092

== ENCOUNTER 2021-11-24 05:02 | Emergency (ER) | payer OTHER ==
[~2021-11-24] VITALS: Ht 162.6 cm; Wt 68.0 kg
[~2021-11-24 05:02] MED LIST changes: -DIAZ5TAB7 PO; +DIAZ5TAB8 PO; +NAPR-54 PO
[2021-11-24 05:07] VITALS: BP 103/62
--- NOTE | 2021-11-24 05:07 | NUR ---
BIBA TAKEN TO BED #1
--- NOTE | 2021-11-24 05:45 | NUR ---
51 Y/O WOMAN BIBA , ALS FOR FALL AT HOME. PT STATES SHE FELL OFF A WOODEN CHAIR EATING AND LANDED ON HER RT HIP AND RT KNEE. DENIES HITTING HEAD, LOSING CONSCIOUSNESS, DENIES N/V/D; SKIN IS PINK/WARM/DRY; AAOX4 ; PT STATES THAT SHE CAN AMBULATE WITH WALKER AT HOME BUT LEGS HURT NOW. LUNGS CLEAR BL; HR EVEN AND REGULAR; PT DENIES ANY FEVER, CP, SOB, OR COUGH AT THIS TIME; PATIENT STATES PAIN OF 9/10 AT THIS TIME; VSS; PATIENT POSITIONED FOR COMFORT; HOB ELEVATED; BEDRAILS UP X2; BED DOWN. SEIZURE PRECAUTIONS ON BED. ER MD MADE AWARE OF PT STATUS. PMH: BIPOLAR, SCHIZOPHRENIA, SEIZURES, ASTHMA RX: AMBIEN,ATIVAN, RISPERSDON
[2021-11-24] MEDS ORDERED: KETOROLAC 30 MG/ML VIAL IM ONE (06:30)
--- NOTE | 2021-11-24 06:31 | NUR ---
XRAY AT BEDSIDE
--- NOTE | 2021-11-24 07:34 | NUR ---
Pt report given to EVA. Transfer of care at this time.
--- NOTE | 2021-11-24 07:46 | NUR ---
RECEIVED REPORT FROM CHRISTY FOSTER. ASSUMED CARE AT THIS TIME.
--- NOTE | 2021-11-24 07:53 | NUR ---
PT RESTING IN BED, PROVIDED A WARM BLANKET FOR COMFORT, ALL NEEDS MET AT THIS TIME.
[2021-11-24] MEDS ORDERED: ONDANSETRON 4 MG ODT PO ONE (08:25)
[2021-11-24] MEDS ORDERED: MORPHINE TAB ER 15 MG TABER PO ONE (08:25)
--- NOTE | 2021-11-24 08:35 | NUR ---
PATIENT C/O 05/27 HIP PAIN, REVIEWED PATIENTS ALLERGIES STATES SHE IS NOT ALLERGIC TO MORPHINE. DR. PIRES MADE AWARE.
[2021-11-24 09:23] VITALS: BP 118/49
--- NOTE | 2021-11-24 09:33 | NUR ---
PATIENTS RIDE IS HERE TO P/U PATIENT. Patient discharged with v/s stable. Written and verbal after care instructions ABOUT MUSCULOSKELETAL PAIN given and explained. Patient verbalized understanding. Ambulatory with steady gait. All questions addressed prior to discharge. Advised to follow up with PMD.
== END 2021-11-24 09:33 | disposition home or self-care (01) ==
LOC: MED 05:02
DX: M25.551 Pain in right hip (principal); M79.604 Pain in right leg; J45.909 Unspecified asthma, uncomplicated; I10 Essential (primary) hypertension; F20.9 Schizophrenia, unspecified; F17.200 Nicotine dependence, unspecified, uncomplicated; Z98.890 Other specified postprocedural states; Z79.899 Other long term (current) drug therapy; Z88.5 Allergy status to narcotic agent; Z88.8 Allergy status to other drugs, medicaments and biological substances; W18.30XA Fall on same level, unspecified, initial encounter; Y93.89 Activity, other specified; Y92.89 Other specified places as the place of occurrence of the external cause; Y99.8 Other external cause status
CPT/HCPCS: 73502; 73552; 73562; 96372; 99285; J1885; Q0092; Q0162

== ENCOUNTER 2022-01-11 09:53 | Emergency (ER) | payer OTHER ==
[~2022-01-11] VITALS: Ht 162.6 cm; Wt 71.0 kg
[2022-01-11 09:58] VITALS: BP 100/70
--- NOTE | 2022-01-11 10:09 | NUR ---
51/F C/O LEFT LOWER LEG PAIN SINCE THIS MORNING S/P FALLING WHILE ATTEMPTING TO WALK UP STAIRS. PATIENT DENIES HEAD OR NECK INURY, DENIES LOC. PATIENT REPORTS SHE TOOK TWO MOTRIN 1 HOUR PRIOR TO ARRIVAL TO ED WITH NO RELIEF. REPORTS 10/10 THROBBING PAIN THAT WORSENS WITH WALKING. NO SIGNS OF REDNESS OR DEMORMITY NOTED, SITE IS TENDER TO TOUCH.
[2022-01-11] MEDS ORDERED: LORazepam 1 MG TAB PO ONE (11:10)
[2022-01-11] MEDS ORDERED: ACETAMINOPHEN 325 MG TAB PO ONE (11:10)
--- NOTE | 2022-01-11 11:37 | NUR ---
X RAY AT BEDSIDE
[2022-01-11] MEDS ORDERED: ACET-10509 PO (11:50)
--- NOTE | 2022-01-11 11:55 | NUR ---
PATIENT STILL C/O PAIN, DR. GRIFFIN MADE AWARE
[2022-01-11] MEDS ORDERED: KETOROLAC 30 MG/ML VIAL IM ONE (12:00)
[2022-01-11 12:28] VITALS: BP 105/74
--- NOTE | 2022-01-11 12:28 | NUR ---
Patient discharged with v/s stable. Written and verbal after care instructions ABOUT CONTUSION given and explained. Patient alert, oriented and verbalized understanding of instructions. Ambulatory with steady gait. All questions addressed prior to discharge. ID band removed. Patient advised to follow up with PMD. Rx of TYLENOL EXTRA STRENGTH given. Patient educated on indication of medication including possible reaction and side effects. Opportunity to ask questions provided and answered.
== END 2022-01-11 12:28 | disposition home or self-care (01) ==
LOC: MED 09:53
DX: S80.12XA Contusion of left lower leg, initial encounter (principal); J45.909 Unspecified asthma, uncomplicated; I10 Essential (primary) hypertension; Z79.891 Long term (current) use of opiate analgesic; Z88.5 Allergy status to narcotic agent; W18.30XA Fall on same level, unspecified, initial encounter; Y93.89 Activity, other specified; Y92.89 Other specified places as the place of occurrence of the external cause; Y99.8 Other external cause status
CPT/HCPCS: 73590; 96372; 99283; J1885

== ENCOUNTER 2022-01-25 11:35 | Emergency (ER) | payer OTHER ==
[~2022-01-25] VITALS: Ht 162.6 cm; Wt 68.3 kg
[~2022-01-25 11:35] MED LIST changes: +ACET-10509 PO
[2022-01-25 11:39] VITALS: BP 100/75
--- NOTE | 2022-01-25 11:44 | NUR ---
PT AMBULATED TO BED 05.
--- NOTE | 2022-01-25 11:51 | NUR ---
PT SITTING ON SIDE OF BED . BED AT LOWEST POSITION SIDE RAILS DOWN X2
[2022-01-25] MEDS ORDERED: LORazepam 1 MG TAB PO ONE (12:10)
[2022-01-25 13:09] VITALS: BP 121/78
--- NOTE | 2022-01-25 13:10 | NUR ---
Chart checked and completed. The patient's care was reviewed and supervised by Arianna Fowler RN.
[2022-01-29] MEDS ORDERED: TRAM50TA1 PO (12:49)
== END 2022-01-25 13:09 | disposition home or self-care (01) ==
LOC: MED 11:35
DX: F41.9 Anxiety disorder, unspecified (principal); J45.909 Unspecified asthma, uncomplicated; I10 Essential (primary) hypertension; Z86.69 Personal history of other diseases of the nervous system and sense organs; Z79.899 Other long term (current) drug therapy; Z79.1 Long term (current) use of non-steroidal anti-inflammatories (NSAID); Z79.2 Long term (current) use of antibiotics; Z88.5 Allergy status to narcotic agent; Z88.8 Allergy status to other drugs, medicaments and biological substances
CPT/HCPCS: 99283

== ENCOUNTER 2022-01-28 07:42 | Emergency (ER) | payer OTHER ==
[~2022-01-28] VITALS: Ht 162.6 cm; Wt 69.9 kg
[2022-01-28 07:50] VITALS: BP 118/88
--- NOTE | 2022-01-28 08:00 | NUR ---
PT AMBULATE TO ROOM 4 WITH STEADY GAIT. PT IN GOWN AND URINE OBTAINED
--- NOTE | 2022-01-28 08:14 | NUR ---
PT PLACED ON MONITOR AND SZ PADS PLACED ON SIDE RAILS. PT STATES NOT TAKING HER SZ MEDICATION THIS AM
--- NOTE | 2022-01-28 08:23 | NUR ---
ER AT BEDSIDE
[2022-01-28] MEDS ORDERED: ONDANSETRON 4 MG ODT PO ONE (08:30)
[2022-01-28] MEDS ORDERED: LORazepam 1 MG TAB PO ONE (08:30)
[2022-01-28] MEDS ORDERED: KETOROLAC 60 MG/2 ML VIAL IM ONE (08:30)
--- NOTE | 2022-01-28 08:50 | NUR ---
PAIN LEVEL 10/10. PT STATES HAS BEEN VOMITING LAST EPSIODE LAST NIGHT.
[2022-01-28] MEDS ORDERED: MORPHINE SULFATE 4 MG/ML SYR IM ONE (09:15)
--- NOTE | 2022-01-28 09:33 | NUR ---
REASSESSMENT OF PAIN 03/27. RESP EVEN AND UNLABORED. NO DISTRESS NOTED
--- NOTE | 2022-01-28 09:55 | NUR ---
PENDING DC PAPERWORK
[2022-01-28] MEDS ORDERED: CIPR500T4 PO (10:12)
[2022-01-28] MEDS ORDERED: IBUP-2213 PO (10:12)
[2022-01-28] MEDS ORDERED: ONDA8TAB87 PO (10:12)
[2022-01-28] MEDS ORDERED: OMEP40EC24 PO (10:12)
[2022-01-28] MEDS ORDERED: ACET-5629 PO (10:12)
[2022-01-28 10:20] VITALS: BP 107/63
--- NOTE | 2022-01-28 10:20 | NUR ---
Patient discharged with v/s stable. Written and verbal after care instructions given and explained. Patient alert, oriented and verbalized understanding of instructions. Ambulatory with steady gait. All questions addressed prior to discharge. ID band removed. Patient advised to follow up with PMD. Rx of PERCOCET CIPRO IBUPROFEN PRILOSEC ZOFRAN given. Patient educated on indication of medication including possible reaction and side effects. Opportunity to ask questions provided and answered.
--- NOTE | 2022-01-28 10:21 | NUR ---
The patient's care was reviewed and supervised by Esperanza Quiñonez RN.
[2022-01-29] MEDS ORDERED: TRAM50TA1 PO (12:49)
== END 2022-01-28 10:20 | disposition home or self-care (01) ==
LOC: MED 07:42
DX: N12 Tubulo-interstitial nephritis, not specified as acute or chronic (principal); J45.909 Unspecified asthma, uncomplicated; I10 Essential (primary) hypertension; Z86.69 Personal history of other diseases of the nervous system and sense organs; Z87.891 Personal history of nicotine dependence; Z98.890 Other specified postprocedural states; Z79.899 Other long term (current) drug therapy; Z79.1 Long term (current) use of non-steroidal anti-inflammatories (NSAID); Z79.2 Long term (current) use of antibiotics; Z88.8 Allergy status to other drugs, medicaments and biological substances; Z88.5 Allergy status to narcotic agent
CPT/HCPCS: 81002; 81025; 96372; 99284; J1885; J2270; Q0162

== ENCOUNTER 2022-02-24 07:19 | Emergency (ER) | payer OTHER ==
[~2022-02-24] VITALS: Ht 162.6 cm; Wt 71.0 kg
[~2022-02-24 07:19] MED LIST changes: +ACET-5629 PO; +CIPR500T4 PO; +OMEP40EC24 PO; +ONDA8TAB87 PO; +TRAM50TA1 PO
[2022-02-24 07:27] VITALS: BP 126/70
--- NOTE | 2022-02-24 07:33 | NUR ---
PT AMB TO BED 9.
--- NOTE | 2022-02-24 08:00 | NUR ---
51 Y/O FEMALE BIB . C/O ANXIETY. PATIENT TAKES ATIVAN 2MG TAKING LAST DOSE YESTERDAY. C/O DIARRHEA, 5X TODAY. DENIES N/V, FEVER, SOB. BOWEL SOUNDS ACTIVE, ABDOMEN SOFT, AND NON-TENDER. ALSO, C/O URINARY FREQUENCY WITH DYSURIA, CHILLS, AND LOW BACK PAIN RATING 5/10 DULL CONSTANT ACHE. TOOK TYLENOL AT 6AM WITH RELIEF. MEDS: ATIVAN PMH: ANXIETY
[2022-02-24] MEDS ORDERED: KETOROLAC 60 MG/2 ML VIAL IM ONE (08:10)
--- NOTE | 2022-02-24 08:10 | NUR ---
ER MD AT BEDSIDE FOR EVALUATION
[2022-02-24] MEDS ORDERED: IBUP-2213 PO (08:45)
[2022-02-24] MEDS ORDERED: ATA25 PO (08:49)
[2022-02-24 08:51] VITALS: BP 128/71
--- NOTE | 2022-02-24 08:51 | NUR ---
Patient discharged with v/s stable. Written and verbal after care instructions given and explained. Patient alert, oriented and verbalized understanding of instructions. Ambulatory with steady gait. All questions addressed prior to discharge. ID band removed. Patient advised to follow up with PMD. Rx of Atarax and Ibuprofen given. Patient educated on indication of medication including possible reaction and side effects. Opportunity to ask questions provided and answered.
== END 2022-02-24 08:51 | disposition home or self-care (01) ==
LOC: MED 07:19
DX: M54.50 Low back pain, unspecified (principal); R19.7 Diarrhea, unspecified; J45.909 Unspecified asthma, uncomplicated; I10 Essential (primary) hypertension; F17.200 Nicotine dependence, unspecified, uncomplicated; Z88.5 Allergy status to narcotic agent; Z88.8 Allergy status to other drugs, medicaments and biological substances; Z90.49 Acquired absence of other specified parts of digestive tract; Z98.890 Other specified postprocedural states
CPT/HCPCS: 81002; 81025; 96372; 99283; J1885

== ENCOUNTER 2022-04-21 09:41 | Emergency (ER) | payer OTHER ==
[~2022-04-21] VITALS: Ht 162.6 cm; Wt 67.1 kg
[~2022-04-21 09:41] MED LIST changes: +ATA25 PO
[2022-04-21 09:54] VITALS: BP 110/72
--- NOTE | 2022-04-21 10:31 | NUR ---
pt c/o right chronic right hip pain, requesting xrays and an us. pt also requesting medication refill.
[2022-04-21] MEDS ORDERED: MORPHINE SULFATE 4 MG/ML SYR IM ONE (11:15)
[2022-04-21] MEDS ORDERED: ASPI-1822 PO (11:17)
[2022-04-21] MEDS ORDERED: VALA500T52 PO (11:18)
== END 2022-04-21 14:26 | disposition home or self-care (01) ==
LOC: MED 09:41
DX: S76.011A Strain of muscle, fascia and tendon of right hip, initial encounter (principal); M13.861 Other specified arthritis, right knee; M43.12 Spondylolisthesis, cervical region; A60.00 Herpesviral infection of urogenital system, unspecified; J45.909 Unspecified asthma, uncomplicated; I10 Essential (primary) hypertension; Z76.0 Encounter for issue of repeat prescription; Z79.899 Other long term (current) drug therapy; Z79.82 Long term (current) use of aspirin; W19.XXXA Unspecified fall, initial encounter; Y93.89 Activity, other specified; Y92.89 Other specified places as the place of occurrence of the external cause; Y99.8 Other external cause status
CPT/HCPCS: 72052; 73502; 73562; 81025; 96372; 99284; J2270

== ENCOUNTER 2022-06-10 09:11 | Emergency (ER) | payer OTHER ==
[~2022-06-10] VITALS: Ht 162.6 cm; Wt 65.8 kg
[~2022-06-10 09:11] MED LIST changes: +ASPI-1822 PO; +VALA500T52 PO
[2022-06-10 09:34] VITALS: BP 144/77
--- NOTE | 2022-06-10 10:09 | NUR ---
52Y/O FEMALE PRESENTS TO ED WITH C/O MID ABD PAIN, N/V/D X 2 DAYS. PT REPORTS CONSTANT PRESSURE 10/10 PAIN, NON-RADIATING, 3 LOOSE STOOLS AND 2 VOMITING EPISODES TODAY. PT DENIES TAKING ANY MEDICATION. PT LAYING IN BED, AND CONNECTED TO AGRI BUSINESS AGENT.
[2022-06-10] MEDS ORDERED: LORazepam 1 MG TAB PO ONE (10:10)
[2022-06-10] MEDS ORDERED: ONDANSETRON 4 MG/2 ML VIAL IVP ONE (10:10)
[2022-06-10] MEDS ORDERED: NACL 0.9% 1,000 ML IV ONE (10:10)
[2022-06-10 10:39] LABS: BASOPHILS # (AUTO) 0.1 K/uL (0.00-0.22); BASOPHILS % (AUTO) 0.7 % (0.0-2.0); EOSINOPHILS # (AUTO) 0.2 K/uL (0-0.4); EOSINOPHILS % (AUTO) 2.4 % (0.0-4.0); HEMATOCRIT 37.8 % (36-48); HEMOGLOBIN 12.9 g/dL (12.0-16.0); LYMPHOCYTES # (AUTO) 3.6 K/uL (2.5-16.5); LYMPHOCYTES % (AUTO) 54.2 % (20.5-51.1); MEAN CORPUSCULAR HEMOGLOBIN 31 pg (27-31); MEAN CORPUSCULAR HGB CONC 34 g/dL (33-37); MEAN CORPUSCULAR VOLUME 91.7 fL (80-94); MONOCYTES # (AUTO) 0.4 K/uL (0.8-1.0); MONOCYTES % (AUTO) 6.4 % (1.7-9.3); NEUTROPHILS # (AUTO) 2.4 K/uL (1.8-7.7); NEUTROPHILS % (AUTO) 36.3 % (42.2-75.2); PLATELET COUNT (AUTO) 311 K/uL (140-450); RED BLOOD CELL COUNT(AUTO) 4.13 MIL/uL (4.20-5.40); RED CELL DISTRIBUTION WIDTH 15.7 % (11.6-13.7); WHITE BLOOD COUNT (AUTO) 6.7 K/uL (4.8-10.8)
--- NOTE | 2022-06-10 10:43 | NUR ---
PT AMBULATED WITH STEADY GAIT TO RESTROOM TO PROVIDE URINE SAMPLE.
[2022-06-10 10:59] LABS: ALBUMIN 3.5 g/dL (3.4-5.0); ANION GAP 13.3 (8-16); CARBON DIOXIDE 28.8 mmol/L (21-32); POTASSIUM 5.1 mmol/L (3.5-5.1); TOTAL BILIRUBIN 0.3 mg/dL (0.0-1.0)
[2022-06-10 11:04] LABS: APPEARANCE,URINE CLEAR (CLEAR); BILIRUBIN,URINE NEGATIVE (NEGATIVE); BLOOD, URINE NEGATIVE (NEGATIVE); COLOR,URINE YELLOW (YELLOW); LEUKOCYTE ESTERASE ,URINE NEGATIVE (NEGATIVE); NITRITE, URINE NEGATIVE (NEGATIVE); PH,URINE 7.5 (5.0-9.0); UGLUCOSE NEGATIVE (NEGATIVE)
[2022-06-10] MEDS ORDERED: ONDA-188 PO (13:11)
[2022-06-10 13:24] VITALS: BP 128/72
== END 2022-06-10 13:24 | disposition home or self-care (01) ==
LOC: MED 09:11
DX: R10.13 Epigastric pain (principal); R11.10 Vomiting, unspecified; R19.7 Diarrhea, unspecified; J45.909 Unspecified asthma, uncomplicated; I10 Essential (primary) hypertension; Z79.899 Other long term (current) drug therapy; Z88.5 Allergy status to narcotic agent; Z88.8 Allergy status to other drugs, medicaments and biological substances
CPT/HCPCS: 36415; 80053; 81003; 81025; 83690; 85025; 96361; 96374; 99283; J2405; J7030

== ENCOUNTER 2022-06-20 18:33 | Emergency (ER) | payer OTHER ==
[~2022-06-20] VITALS: Ht 162.6 cm; Wt 65.8 kg
[~2022-06-20 18:33] MED LIST changes: -DIT5 PO; +OXYB5TAB44 PO; +TRAM-748 PO; -TRAM50TA1 PO
[2022-06-20 18:51] VITALS: BP 96/71
--- NOTE | 2022-06-20 19:21 | NUR ---
PT RETURN FROM RADIOLOGY
--- NOTE | 2022-06-20 20:35 | NUR ---
splint and sling placed by EMT prior to departure.
== END 2022-06-20 20:39 | disposition home or self-care (01) ==
LOC: MED 18:33
DX: S42.201A Unspecified fracture of upper end of right humerus, initial encounter for closed fracture (principal); J45.909 Unspecified asthma, uncomplicated; I10 Essential (primary) hypertension; F31.9 Bipolar disorder, unspecified; F20.9 Schizophrenia, unspecified; Z86.69 Personal history of other diseases of the nervous system and sense organs; Z79.899 Other long term (current) drug therapy; Z79.82 Long term (current) use of aspirin; Z79.1 Long term (current) use of non-steroidal anti-inflammatories (NSAID); Z79.2 Long term (current) use of antibiotics; Z79.891 Long term (current) use of opiate analgesic; Z88.5 Allergy status to narcotic agent; Z88.8 Allergy status to other drugs, medicaments and biological substances; W18.39XA Other fall on same level, initial encounter; Y93.01 Activity, walking, marching and hiking; Y92.89 Other specified places as the place of occurrence of the external cause; Y99.8 Other external cause status
CPT/HCPCS: 29105; 73030; 99283

== ENCOUNTER 2022-07-19 10:26 | Emergency (ER) | payer OTHER ==
[~2022-07-19] VITALS: Ht 162.6 cm; Wt 67.6 kg
[2022-07-19 10:44] VITALS: BP 100/68
--- NOTE | 2022-07-19 10:55 | NUR ---
Pt to chair A
--- NOTE | 2022-07-19 10:58 | NUR ---
Pt ambulated to bed 05. Dr. Tillman notified.
[2022-07-19] MEDS ORDERED: ONDANSETRON 4 MG ODT PO ONE (11:25)
--- NOTE | 2022-07-19 11:33 | NUR ---
PT TAKEN TO CT VIA KRZYSZTOF
[2022-07-19] MEDS ORDERED: ACET-5629 PO (12:47)
[2022-07-19] MEDS ORDERED: NAPR-1704 PO (12:47)
--- NOTE | 2022-07-19 12:57 | NUR ---
Patient discharged with v/s stable. Written and verbal after care instructions FOR HEAD INJURY , SHOULDER PAIN AND CERVICAL SPRAIN given and explained. Patient alert, oriented and verbalized understanding of instructions. Ambulatory with steady gait. All questions addressed prior to discharge. ID band removed. Patient advised to follow up with PMD. Rx of NAPROXEN AND PERCOCET given. Opportunity to ask questions provided and answered.
[2022-07-19 12:58] VITALS: BP 123/70
== END 2022-07-19 12:58 | disposition home or self-care (01) ==
LOC: MED 10:26
DX: S46.911A Strain of unspecified muscle, fascia and tendon at shoulder and upper arm level, right arm, initial encounter (principal); S13.4XXA Sprain of ligaments of cervical spine, initial encounter; S00.81XA Abrasion of other part of head, initial encounter; J45.909 Unspecified asthma, uncomplicated; I10 Essential (primary) hypertension; F41.9 Anxiety disorder, unspecified; F31.9 Bipolar disorder, unspecified; Z79.899 Other long term (current) drug therapy; W18.30XA Fall on same level, unspecified, initial encounter; Y93.89 Activity, other specified; Y92.89 Other specified places as the place of occurrence of the external cause; Y99.8 Other external cause status
CPT/HCPCS: 70450; 72125; 73030; 99284; Q0092; Q0162

== ENCOUNTER 2022-08-30 08:23 | Emergency (ER) | payer OTHER ==
[~2022-08-30] VITALS: Ht 162.6 cm; Wt 67.6 kg
[~2022-08-30 08:23] MED LIST changes: +NAPR-1704 PO
--- NOTE | 2022-08-30 08:24 | NUR ---
PATIENT BIBA TO BED 12.
[2022-08-30 08:27] VITALS: BP 111/79
--- NOTE | 2022-08-30 08:30 | NUR ---
52/F BIBA FROM HOME C.O RIGHT SHOULDER PAIN S/P FALL IN SHOWER. DENIES HEAD INJURY OR LOC. PT REPORTS CONSTANT ACHING PAIN AT THIS TIME. NO OPEN INJURY NOTED. NO DEFORMITY NOTED. AAO4, AMBULATORY, VITALS STABLE. pmh; bipolar, schizophrenia, anxiety, seizures, asthma, fall allergy: hydrocodone, darbazine, propoxyohene meds: depakote, seroquel, gabapentin, xanax
--- NOTE | 2022-08-30 08:33 | NUR ---
DR WILKES AT BEDSIDE FOR EVAL
[2022-08-30] MEDS ORDERED: ACETAMINOPHEN 325 MG TAB PO ONE (08:35)
[2022-08-30] MEDS ORDERED: ACETAMINOPHEN 325 MG TAB ONE (08:39)
--- NOTE | 2022-08-30 08:41 | NUR ---
BLOOD DRAWN BY READING SPECIALIST, EKG DONE AT BEDSIDE
[2022-08-30 09:02] LABS: BASOPHILS % (AUTO) 0.5 % (0.0-2.0); EOSINOPHILS # (AUTO) 0.4 K/uL (0-0.4); EOSINOPHILS % (AUTO) 4.4 % (0.0-4.0); HEMATOCRIT 32.6 % (36-48); HEMOGLOBIN 11.2 g/dL (12.0-16.0); LYMPHOCYTES # (AUTO) 3.2 K/uL (2.5-16.5); LYMPHOCYTES % (AUTO) 40.2 % (20.5-51.1); MEAN CORPUSCULAR HEMOGLOBIN 30 pg (27-31); MEAN CORPUSCULAR HGB CONC 34 g/dL (33-37); MEAN CORPUSCULAR VOLUME 87.1 fL (80-94); MONOCYTES # (AUTO) 0.4 K/uL (0.8-1.0); MONOCYTES % (AUTO) 4.4 % (1.7-9.3); NEUTROPHILS % (AUTO) 50.5 % (42.2-75.2); PLATELET COUNT (AUTO) 289 K/uL (140-450); RED BLOOD CELL COUNT(AUTO) 3.74 MIL/uL (4.20-5.40); RED CELL DISTRIBUTION WIDTH 13.6 % (11.6-13.7)
[2022-08-30 09:42] LABS: ALBUMIN 3.7 g/dL (3.4-5.0); ANION GAP 13.7 (8-16); CARBON DIOXIDE 27.7 mmol/L (21-32); CREATININE 0.9 mg/dL (0.6-1.3); POTASSIUM 3.4 mmol/L (3.5-5.1); TOTAL BILIRUBIN 0.2 mg/dL (0.0-1.0)
[2022-08-30 10:30] VITALS: BP 128/85
--- NOTE | 2022-08-30 11:18 | NUR ---
PT C/O RIGHT SHOULDER PAIN. ERMD NOTIFIED
[2022-08-30] MEDS ORDERED: KETOROLAC 15 MG/ML VIAL IM ONE (11:20)
[2022-08-30] MEDS ORDERED: ACET-8905 PO (12:09)
== END 2022-08-30 12:25 | disposition home or self-care (01) ==
LOC: MED 08:23
DX: S52.121A Displaced fracture of head of right radius, initial encounter for closed fracture (principal); I10 Essential (primary) hypertension; F41.9 Anxiety disorder, unspecified; F20.9 Schizophrenia, unspecified; J45.909 Unspecified asthma, uncomplicated; F31.9 Bipolar disorder, unspecified; Z79.899 Other long term (current) drug therapy; Z88.5 Allergy status to narcotic agent; Z88.8 Allergy status to other drugs, medicaments and biological substances; W18.30XA Fall on same level, unspecified, initial encounter; Y93.89 Activity, other specified; Y92.89 Other specified places as the place of occurrence of the external cause; Y99.8 Other external cause status
CPT/HCPCS: 29125; 36415; 73030; 73080; 80053; 85025; 93005; 96372; 99285; J1885

== ENCOUNTER 2022-10-05 13:29 | Emergency (ER) | payer OTHER ==
[~2022-10-05] VITALS: Ht 162.6 cm; Wt 65.8 kg
[~2022-10-05 13:29] MED LIST changes: +ACET-8905 PO; +BENZ1TAB24 PO; -COG1 PO
[2022-10-05 13:32] VITALS: BP 120/80
[2022-10-05] MEDS ORDERED: KETOROLAC 30 MG/ML VIAL IM ONE (14:25)
[2022-10-05 14:30] VITALS: BP 120/80
--- NOTE | 2022-10-05 14:30 | NUR ---
CALLED X 1. NO SHOW.
--- NOTE | 2022-10-05 14:56 | NUR ---
CALLEDX2. NO SHOW.
== END 2022-10-05 14:30 | disposition left against medical advice (07) ==
LOC: MED 13:29
DX: M25.511 Pain in right shoulder (principal); Z53.21 Procedure and treatment not carried out due to patient leaving prior to being seen by health care provider

== ENCOUNTER 2022-11-08 04:02 | Emergency (ER) | payer OTHER ==
[~2022-11-08] VITALS: Ht 162.6 cm; Wt 68.0 kg
[2022-11-08 04:14] VITALS: BP 124/70
--- NOTE | 2022-11-08 04:22 | NUR ---
Patient taken to bed 3
--- NOTE | 2022-11-08 04:37 | NUR ---
Dr. Rivero examining patient.
[2022-11-08] MEDS ORDERED: MORPHINE SULFATE 4 MG/ML SYR IM ONE (04:40)
--- NOTE | 2022-11-08 04:43 | NUR ---
X-Ray at bedside.
[2022-11-08] MEDS ORDERED: ONDA-188 PO (05:12)
[2022-11-08] MEDS ORDERED: ACET-5629 PO ×2 (05:12→05:41)
[2022-11-08] MEDS ORDERED: LID5T TP (05:13)
[2022-11-08 05:30] VITALS: BP 122/70
--- NOTE | 2022-11-08 05:30 | NUR ---
Patient discharged with v/s stable. Written and verbal after care instructions given and explained. Patient alert, oriented and verbalized understanding of instructions. Ambulatory with steady gait. All questions addressed prior to discharge. ID band removed. Patient advised to follow up with PMD. Rx of Lidoderm, Percocet and Zofran given. Patient educated on indication of medication including possible reaction and side effects. Opportunity to ask questions provided and answered.
--- NOTE | 2022-11-08 05:32 | NUR ---
Called patient's family for a ride.
== END 2022-11-08 05:30 | disposition home or self-care (01) ==
LOC: MED 04:02
DX: S42.291A Other displaced fracture of upper end of right humerus, initial encounter for closed fracture (principal); J45.909 Unspecified asthma, uncomplicated; I10 Essential (primary) hypertension; Z88.8 Allergy status to other drugs, medicaments and biological substances; Z79.899 Other long term (current) drug therapy; W18.30XA Fall on same level, unspecified, initial encounter; Y93.89 Activity, other specified; Y92.89 Other specified places as the place of occurrence of the external cause; Y99.8 Other external cause status
CPT/HCPCS: 73030; 96372; 99283; J2270; Q0092

== ENCOUNTER 2022-11-17 12:22 | Emergency (ER) | payer OTHER ==
[~2022-11-17] VITALS: Ht 162.6 cm; Wt 67.6 kg
[~2022-11-17 12:22] MED LIST changes: +LID5T TP
[2022-11-17 12:26] VITALS: BP 120/81
[2022-11-17] MEDS ORDERED: KETOROLAC 30 MG/ML VIAL IM ONE (13:10)
--- NOTE | 2022-11-17 15:40 | NUR ---
aao x4. resp even and nonlabored. vss. reports pain improved. pending dispo
[2022-11-17] MEDS ORDERED: IBUP-2213 PO ×2 (15:46→16:02)
[2022-11-17] MEDS ORDERED: LID5T TP ×2 (15:46→16:02)
[2022-11-17 16:07] VITALS: BP 122/76
== END 2022-11-17 16:07 | disposition home or self-care (01) ==
LOC: MED 12:22
DX: S40.011A Contusion of right shoulder, initial encounter (principal); J45.909 Unspecified asthma, uncomplicated; I10 Essential (primary) hypertension; Z88.8 Allergy status to other drugs, medicaments and biological substances; Z79.899 Other long term (current) drug therapy; W18.30XA Fall on same level, unspecified, initial encounter; Y93.89 Activity, other specified; Y92.89 Other specified places as the place of occurrence of the external cause; Y99.8 Other external cause status
CPT/HCPCS: 73030; 73060; 96372; 99284; J1885; Q0092

== ENCOUNTER 2023-01-11 17:00 | Emergency (ER) | payer OTHER ==
[~2023-01-11] VITALS: Ht 162.6 cm; Wt 62.1 kg
[2023-01-11 17:26] VITALS: BP 125/88
--- NOTE | 2023-01-11 17:35 | NUR ---
BIB BY MEDIC S/P MECHANICAL FALL, RT SHOULDER + DEFORMITY, + PCMS
--- NOTE | 2023-01-11 17:46 | NUR ---
X-Ray at bedside.
[2023-01-11] MEDS ORDERED: KETOROLAC 15 MG/ML VIAL IVP ONE (18:20)
--- NOTE | 2023-01-11 19:23 | NUR ---
pt back from ct
[2023-01-11 20:23] VITALS: BP 101/66
--- NOTE | 2023-01-11 21:54 | NUR ---
PT IS A&OX4. PAIN LEVEL 03/27. R SHOULDER. POSSIBLE DISLOCATION. PT ON BEDSIDE MONITOR. DENIES CP OR SOB. HAD SURGERY ON R SHOULDER ON THE . ASTHMA CHF BIOPOLAR HTN SCHZO
[2023-01-11] MEDS ORDERED: NAPR-1704 PO (22:06)
== END 2023-01-11 22:29 | disposition home or self-care (01) ==
LOC: MED 17:00
DX: S46.811A Strain of other muscles, fascia and tendons at shoulder and upper arm level, right arm, initial encounter (principal); M24.411 Recurrent dislocation, right shoulder; J45.909 Unspecified asthma, uncomplicated; I10 Essential (primary) hypertension; Z88.8 Allergy status to other drugs, medicaments and biological substances; Z88.5 Allergy status to narcotic agent; Z79.899 Other long term (current) drug therapy; Z98.890 Other specified postprocedural states; W19.XXXA Unspecified fall, initial encounter; Y93.89 Activity, other specified; Y92.89 Other specified places as the place of occurrence of the external cause; Y99.8 Other external cause status
CPT/HCPCS: 73030; 73200; 96374; 99285; J1885; Q0092

== ENCOUNTER 2023-02-12 06:30 | Emergency (ER) | payer OTHER ==
[~2023-02-12] VITALS: Ht 162.6 cm; Wt 63.0 kg
[2023-02-12 06:40] VITALS: BP 100/58; PULSE 100; RESP 17; TEMP 97.8; O2SAT 96
--- NOTE | 2023-02-12 06:40 | NUR ---
TO BED AMBULATORY
[2023-02-12] MEDS ORDERED: ACET-8905 PO (07:53)
[2023-02-12] MEDS ORDERED: NAPR-54 PO (07:53)
[2023-02-12] MEDS ORDERED: IBUPROFEN 400 MG TAB PO ONE (07:55)
[2023-02-12] MEDS ORDERED: HYDROcodone/APAP 5/325 MG 1 TAB TAB PO ONE (07:55)
--- NOTE | 2023-02-12 08:10 | NUR ---
Patient appears to be resting comfortably in bed. Vital Signs within normal limits. Respirations even and unlabored.
[2023-02-12 09:15] VITALS: BP 134/83; PULSE 100; RESP 16; TEMP 97.8; O2SAT 94
--- NOTE | 2023-02-12 09:15 | NUR ---
Patient discharged with v/s stable. Written and verbal after care instructions given, CDs given and explained. Patient alert, oriented and verbalized understanding of instructions. Ambulatory with steady gait. All questions addressed prior to discharge. ID band removed. Patient advised to follow up with PMD. Rx of Hydrocodone and Naproxen given. Patient educated on indication of medication including possible reaction and side effects. Opportunity to ask questions provided and answered.
[2023-02-13] MEDS ORDERED: TRAM50TA3 PO (11:48)
== END 2023-02-12 09:15 | disposition home or self-care (01) ==
LOC: MED 06:30
DX: S43.011A Anterior subluxation of right humerus, initial encounter (principal); F17.210 Nicotine dependence, cigarettes, uncomplicated; J45.909 Unspecified asthma, uncomplicated; I10 Essential (primary) hypertension; Z88.8 Allergy status to other drugs, medicaments and biological substances; Z79.4 Long term (current) use of insulin; Z79.899 Other long term (current) drug therapy; Z98.890 Other specified postprocedural states; Z71.6 Tobacco abuse counseling; W01.0XXA Fall on same level from slipping, tripping and stumbling without subsequent striking against object, initial encounter; Y93.89 Activity, other specified; Y92.89 Other specified places as the place of occurrence of the external cause; Y99.8 Other external cause status
CPT/HCPCS: 73030; 99283; Q0092

== ENCOUNTER 2023-03-12 04:45 | Emergency (ER) | payer OTHER ==
[~2023-03-12] VITALS: Ht 162.6 cm; Wt 64.4 kg
[~2023-03-12 04:45] MED LIST changes: +TRAM50TA3 PO
[2023-03-12 05:08] VITALS: BP 131/83; PULSE 78; RESP 18; TEMP 97.5; O2SAT 99
[2023-03-12] MEDS ORDERED: IBUPROFEN 600 MG TAB PO ONE (05:20)
[2023-03-12] MEDS ORDERED: LORazepam 0.5 MG TAB PO ONE (05:20)
--- NOTE | 2023-03-12 06:09 | NUR ---
Patient being evaluated by physician at bedside.
[2023-03-12] MEDS ORDERED: KETOROLAC 30 MG/ML VIAL IM ONE (06:50)
[2023-03-12] MEDS ORDERED: LORA-476 PO (06:56)
[2023-03-12] MEDS ORDERED: NAPR-54 PO (06:56)
[2023-03-12 07:17] VITALS: BP 131/83; PULSE 78; RESP 18; TEMP 97.5; O2SAT 99
--- NOTE | 2023-03-12 07:19 | NUR ---
Patient discharged with v/s stable. Written and verbal after care instructions given and explained. Patient alert, oriented and verbalized understanding of instructions. Ambulatory with steady gait. All questions addressed prior to discharge. ID band removed. Patient advised to follow up with PMD. Rx of ATIVAN, NAPROXEN given. Patient educated on indication of medication including possible reaction and side effects. Opportunity to ask questions provided and answered.
== END 2023-03-12 07:19 | disposition home or self-care (01) ==
LOC: MED 04:45
DX: G89.29 Other chronic pain (principal); M25.511 Pain in right shoulder; M24.811 Other specific joint derangements of right shoulder, not elsewhere classified; J45.909 Unspecified asthma, uncomplicated; I10 Essential (primary) hypertension; Z86.69 Personal history of other diseases of the nervous system and sense organs; Z79.899 Other long term (current) drug therapy; Z79.1 Long term (current) use of non-steroidal anti-inflammatories (NSAID); Z79.82 Long term (current) use of aspirin; Z79.2 Long term (current) use of antibiotics; Z88.8 Allergy status to other drugs, medicaments and biological substances
CPT/HCPCS: 73030; 99283

== ENCOUNTER 2023-03-28 07:23 | Emergency (ER) | payer OTHER ==
[~2023-03-28] VITALS: Ht 162.6 cm; Wt 63.0 kg
[2023-03-28 08:12] VITALS: BP 116/75; PULSE 100; RESP 18; TEMP 97.1; O2SAT 100
[2023-03-28] MEDS ORDERED: LOPE1TAB14 PO ×2 (08:40→16:11)
[2023-03-28] MEDS ORDERED: HYDROcodone/APAP 10/325 MG 1 TAB TAB PO ONE (08:40)
[2023-03-28 09:25] VITALS: BP 125/75; PULSE 75; RESP 16; TEMP 98.6; O2SAT 98
== END 2023-03-28 09:24 | disposition home or self-care (01) ==
LOC: MED 07:23
DX: R19.7 Diarrhea, unspecified (principal); M25.511 Pain in right shoulder; J45.909 Unspecified asthma, uncomplicated; I10 Essential (primary) hypertension; Z88.8 Allergy status to other drugs, medicaments and biological substances; Z79.899 Other long term (current) drug therapy
CPT/HCPCS: 99283

== ENCOUNTER 2023-04-12 06:59 | Emergency (ER) | payer OTHER ==
[~2023-04-12] VITALS: Ht 162.6 cm; Wt 65.8 kg
[~2023-04-12 06:59] MED LIST changes: +LOPE1TAB14 PO
[2023-04-12 08:01] VITALS: BP 114/74; PULSE 89; RESP 18; TEMP 97.4; O2SAT 100
[2023-04-12] MEDS ORDERED: HYDROcodone/APAP 5/325 MG 1 TAB TAB PO ONE (08:35)
== END 2023-04-12 08:30 | disposition left against medical advice (07) ==
LOC: MED 06:59
DX: M25.511 Pain in right shoulder (principal); I10 Essential (primary) hypertension; J45.909 Unspecified asthma, uncomplicated; Z79.899 Other long term (current) drug therapy; Z88.8 Allergy status to other drugs, medicaments and biological substances
CPT/HCPCS: 99283

== ENCOUNTER 2023-05-05 17:31 | Emergency (ER) | payer OTHER ==
[~2023-05-05] VITALS: Ht 162.6 cm; Wt 65.8 kg
[2023-05-05 17:35] VITALS: BP 135/88; PULSE 91; RESP 18; TEMP 97.7; O2SAT 95
[2023-05-05 17:59] VITALS: BP 121/63; PULSE 100; RESP 17; TEMP 98.2
[2023-05-05] MEDS ORDERED: NACL 0.9% 1,000 ML IV ONE (18:15)
[2023-05-05] MEDS ORDERED: KETOROLAC 30 MG/ML VIAL IVP ONE (18:15)
[2023-05-05] MEDS ORDERED: ONDANSETRON 4 MG/2 ML VIAL IVP ONE (18:15)
[2023-05-05 18:28] VITALS: O2SAT 99
[2023-05-05] MEDS ORDERED: IBUP-2213 PO (20:07)
[2023-05-05] MEDS ORDERED: ONDA8TAB87 PO (20:07)
[2023-05-05] MEDS ORDERED: HYDR-5191 PO (20:07)
== END 2023-05-05 20:52 | disposition home or self-care (01) ==
LOC: MED 17:31
DX: R10.12 Left upper quadrant pain (principal); R11.0 Nausea; J45.909 Unspecified asthma, uncomplicated; I10 Essential (primary) hypertension; Z79.899 Other long term (current) drug therapy
CPT/HCPCS: 96361; 96374; 96375; 99284; J1885; J2405; J7030

== ENCOUNTER 2023-05-25 15:57 | Emergency (ER) | payer OTHER ==
[~2023-05-25] VITALS: Ht 162.6 cm; Wt 67.6 kg
[~2023-05-25 15:57] MED LIST changes: +HYDR-5191 PO
[2023-05-25 16:27] VITALS: BP 128/85; PULSE 117; RESP 20; TEMP 98.1; O2SAT 98
[2023-05-25] MEDS ORDERED: ONDANSETRON 4 MG ODT PO ONE (17:00)
[2023-05-25 17:30] LABS: AMPHETAMINE, URINE POSITIVE ng/ml (NEG <=1000); BARBITURATE, URINE POSITIVE ng/ml (NEG <=200); BENZODIAZEPINE, URINE POSITIVE ng/mL (NEG <=200); CANNABINOID, URINE POSITIVE ng/mL (NEG <=50); COCAINE, URINE NEGATIVE ng/mL (NEG <=300); OPIATE, URINE POSITIVE ng/mL (NEG <=2000); PHENCYCLIDINE SCREEN,URINE NEGATIVE ng/mL (NEG <=25)
[2023-05-25] MEDS ORDERED: NACL 0.9% 500 ML IV SCH (17:40)
[2023-05-25 18:21] VITALS: O2SAT 98
[2023-05-25 18:41] LABS: ACETAMINOPHEN < 0.5 ug/ml (10-30); ALCOHOL, BLOOD < 3 mg/dL (<10); BASOPHILS % (AUTO) 0.2 % (0.0-2.0); EOSINOPHILS # (AUTO) 0.1 K/uL (0-0.4); EOSINOPHILS % (AUTO) 0.9 % (0.0-4.0); HEMATOCRIT 38.8 % (36-48); HEMOGLOBIN 12.8 g/dL (12.0-16.0); LYMPHOCYTES # (AUTO) 1.8 K/uL (2.5-16.5); LYMPHOCYTES % (AUTO) 14.9 % (20.5-51.1); MEAN CORPUSCULAR HEMOGLOBIN 29 pg (27-31); MEAN CORPUSCULAR HGB CONC 33 g/dL (33-37); MEAN CORPUSCULAR VOLUME 88.8 fL (80-94); MONOCYTES # (AUTO) 1.2 K/uL (0.8-1.0); MONOCYTES % (AUTO) 10.2 % (1.7-9.3); NEUTROPHILS # (AUTO) 8.8 K/uL (1.8-7.7); NEUTROPHILS % (AUTO) 73.8 % (42.2-75.2); PLATELET COUNT (AUTO) 250 K/uL (140-450); RED BLOOD CELL COUNT(AUTO) 4.37 MIL/uL (4.20-5.40); RED CELL DISTRIBUTION WIDTH 15.5 % (11.6-13.7); SALICYLATE < 2.8 mg/dL (2.8-20.0); WHITE BLOOD COUNT (AUTO) 11.9 K/uL (4.8-10.8)
[2023-05-25 19:27] LABS: ALANINE AMINOTRANSFERASE 21 U/L (12-78); ALBUMIN 3.1 g/dL (3.4-5.0); ALKALINE PHOSPHATASE 139 U/L (50-136); ASPARTATE AMINOTRANSFERASE 16 U/L (15-37); CALCIUM 9.4 mg/dL (8.5-10.1); CHLORIDE 103 mmol/L (98-107); CREATININE 1.1 mg/dL (0.6-1.3); GFR ARICAN-AMERICAN 67 mL/min (>90); GFR NON ARICAN-AMERICAN 55 mL/min (>90); GLUCOSE 118 mg/dL (74-106); PHOSPHORUS 4.6 mg/dL (2.5-4.9); SODIUM SERUM 140 mmol/L (136-145); TOTAL BILIRUBIN 0.2 mg/dL (0.0-1.0); TOTAL PROTEIN, SERUM 6.9 g/dL (6.4-8.2); UREA NITROGEN, BLOOD 25 mg/dL (7-18)
[2023-05-25 20:11] VITALS: BP 128/85; PULSE 107; RESP 20; TEMP 98.1; O2SAT 98
== END 2023-05-25 20:11 | disposition home or self-care (01) ==
LOC: MED 15:57
DX: F19.10 Other psychoactive substance abuse, uncomplicated (principal); J45.909 Unspecified asthma, uncomplicated; I10 Essential (primary) hypertension; F20.9 Schizophrenia, unspecified; F31.9 Bipolar disorder, unspecified; Z86.69 Personal history of other diseases of the nervous system and sense organs; Z79.899 Other long term (current) drug therapy; Z79.1 Long term (current) use of non-steroidal anti-inflammatories (NSAID); Z79.82 Long term (current) use of aspirin; Z79.2 Long term (current) use of antibiotics; Z88.5 Allergy status to narcotic agent
CPT/HCPCS: 36415; 71045; 80053; 80305; 83735; 84100; 84484; 85025; 93005; 96360; 99285; G0480; G0482; J7030; Q0162

== ENCOUNTER 2023-05-31 06:43 | Emergency (ER) | payer OTHER ==
[~2023-05-31] VITALS: Ht 157.5 cm; Wt 63.5 kg
[2023-05-31 06:48] VITALS: BP 142/87; PULSE 104; RESP 16; TEMP 97.4; O2SAT 99
[2023-05-31] MEDS ORDERED: KETOROLAC 30 MG/ML VIAL IM ONE (06:55)
[2023-05-31 06:58] VITALS: O2SAT 97
[2023-05-31] MEDS ORDERED: MORPHINE SULFATE 4 MG/ML SYR IM ONE (08:00)
[2023-05-31] MEDS ORDERED: ACET-10509 PO (08:27)
[2023-05-31] MEDS ORDERED: IBUP-2213 PO (08:28)
[2023-05-31 08:34] VITALS: BP 134/74; PULSE 89; RESP 18; TEMP 98.3; O2SAT 98
== END 2023-05-31 08:44 | disposition home or self-care (01) ==
LOC: MED 06:43
DX: S43.491A Other sprain of right shoulder joint, initial encounter (principal); S09.90XA Unspecified injury of head, initial encounter; J45.909 Unspecified asthma, uncomplicated; I10 Essential (primary) hypertension; Z88.8 Allergy status to other drugs, medicaments and biological substances; Z79.899 Other long term (current) drug therapy; W01.198A Fall on same level from slipping, tripping and stumbling with subsequent striking against other object, initial encounter; Y93.89 Activity, other specified; Y92.89 Other specified places as the place of occurrence of the external cause; Y99.8 Other external cause status
CPT/HCPCS: 71045; 73030; 96372; 99284; J1885; Q0092

== ENCOUNTER 2023-07-05 10:58 | Emergency (ER) | payer OTHER ==
[~2023-07-05] VITALS: Ht 160 cm; Wt 63.3 kg
[2023-07-05 11:13] VITALS: BP 87/57; PULSE 92; RESP 19; TEMP 97.8; O2SAT 97
[2023-07-05] MEDS ORDERED: KETOROLAC 30 MG/ML VIAL IM ONE (11:55)
[2023-07-05] MEDS ORDERED: KETOROLAC 30 MG/ML VIAL ONE (13:57)
== END 2023-07-05 13:50 | disposition home or self-care (01) ==
LOC: MED 10:58
DX: S43.031A Inferior subluxation of right humerus, initial encounter (principal); J44.9 Chronic obstructive pulmonary disease, unspecified; J45.909 Unspecified asthma, uncomplicated; I10 Essential (primary) hypertension; Z79.899 Other long term (current) drug therapy; X58.XXXA Exposure to other specified factors, initial encounter; Y93.89 Activity, other specified; Y92.89 Other specified places as the place of occurrence of the external cause; Y99.8 Other external cause status
CPT/HCPCS: 73030; 99283; J1885

== ENCOUNTER 2023-07-22 15:12 | Emergency (ER) | payer OTHER ==
[~2023-07-22] VITALS: Ht 157.5 cm; Wt 72.6 kg
[2023-07-22 15:35] VITALS: BP 122/66; PULSE 64; RESP 18; TEMP 97; O2SAT 98
[2023-07-22] MEDS ORDERED: ONDANSETRON 4 MG ODT PO ONE (15:50)
[2023-07-22] MEDS ORDERED: MORPHINE SULFATE 4 MG/ML SYR IM ONE (15:50)
[2023-07-22 15:57] VITALS: TEMP 97; O2SAT 98
[2023-07-22] MEDS ORDERED: ACETAMINOPHEN 325 MG TAB PO ONE (17:45)
[2023-07-22] MEDS ORDERED: LIDOCAINE 4% 1 EA PATCH TP ONE ×2 (17:55→19:13)
[2023-07-22] MEDS ORDERED: KETOROLAC 30 MG/ML VIAL IVP ONE (17:55)
[2023-07-22] MEDS ORDERED: KETOROLAC 30 MG/ML VIAL ONE (19:13)
[2023-07-22 19:16] LABS: BASOPHILS % (AUTO) 0.3 % (0.0-2.0); EOSINOPHILS # (AUTO) 0.3 K/uL (0-0.4); EOSINOPHILS % (AUTO) 2.9 % (0.0-4.0); HEMATOCRIT 32.7 % (36-48); LYMPHOCYTES # (AUTO) 2.8 K/uL (2.5-16.5); LYMPHOCYTES % (AUTO) 27.9 % (20.5-51.1); MEAN CORPUSCULAR HEMOGLOBIN 30 pg (27-31); MEAN CORPUSCULAR HGB CONC 34 g/dL (33-37); MEAN CORPUSCULAR VOLUME 90.8 fL (80-94); MONOCYTES # (AUTO) 0.8 K/uL (0.8-1.0); MONOCYTES % (AUTO) 7.7 % (1.7-9.3); NEUTROPHILS # (AUTO) 6.2 K/uL (1.8-7.7); NEUTROPHILS % (AUTO) 61.2 % (42.2-75.2); PLATELET COUNT (AUTO) 213 K/uL (140-450); RED CELL DISTRIBUTION WIDTH 15.2 % (11.6-13.7); WHITE BLOOD COUNT (AUTO) 10.1 K/uL (4.8-10.8)
[2023-07-22 19:26] VITALS: BP 120/72; PULSE 78; RESP 21; O2SAT 94
[2023-07-22 19:34] LABS: ALANINE AMINOTRANSFERASE 23 U/L (12-78); ALBUMIN 3.2 g/dL (3.4-5.0); ALKALINE PHOSPHATASE 107 U/L (50-136); ANION GAP 10.8 (8-16); ASPARTATE AMINOTRANSFERASE 24 U/L (15-37); CALCIUM 7.8 mg/dL (8.5-10.1); CARBON DIOXIDE 28.5 mmol/L (21-32); CHLORIDE 106 mmol/L (98-107); CREATININE 0.8 mg/dL (0.6-1.3); GFR ARICAN-AMERICAN 96 mL/min (>90); GFR NON ARICAN-AMERICAN 79 mL/min (>90); GLUCOSE 98 mg/dL (74-106); POTASSIUM 4.3 mmol/L (3.5-5.1); SODIUM SERUM 141 mmol/L (136-145); TOTAL BILIRUBIN 0.3 mg/dL (0.0-1.0); TOTAL PROTEIN, SERUM 6.1 g/dL (6.4-8.2); UREA NITROGEN, BLOOD 13 mg/dL (7-18)
[2023-07-22] MEDS ORDERED: LID5T TP (19:49)
[2023-07-22] MEDS ORDERED: MORPHINE SULFATE 4 MG/ML SYR IVP ONE (19:50)
== END 2023-07-22 20:14 | disposition home or self-care (01) ==
LOC: MED 15:12
DX: S39.012A Strain of muscle, fascia and tendon of lower back, initial encounter (principal); M25.511 Pain in right shoulder; J45.909 Unspecified asthma, uncomplicated; I10 Essential (primary) hypertension; J44.9 Chronic obstructive pulmonary disease, unspecified; Z88.8 Allergy status to other drugs, medicaments and biological substances; Z79.899 Other long term (current) drug therapy; W01.198A Fall on same level from slipping, tripping and stumbling with subsequent striking against other object, initial encounter; Y93.89 Activity, other specified; Y92.89 Other specified places as the place of occurrence of the external cause; Y99.8 Other external cause status
CPT/HCPCS: 36415; 70450; 71045; 72125; 72128; 72131; 73030; 80053; 84484; 85025; 93005; 96372; 96374; 96375; 99285; J1885; J2270; Q0162

== ENCOUNTER 2023-08-04 06:50 | Emergency (ER) | payer OTHER ==
[~2023-08-04] VITALS: Ht 162.6 cm; Wt 66.7 kg
[2023-08-04 07:07] VITALS: BP 88/56; PULSE 102; RESP 20; TEMP 98; O2SAT 98
[2023-08-04] MEDS ORDERED: predniSONE 20 MG TAB PO ONE (07:35)
[2023-08-04] MEDS ORDERED: MORPHINE SULFATE 4 MG/ML SYR IM ONE (07:35)
[2023-08-04] MEDS ORDERED: ACETAMINOPHEN 325 MG TAB PO ONE (07:35)
[2023-08-04] MEDS ORDERED: LORazepam 1 MG TAB PO ONE (08:30)
[2023-08-04] MEDS ORDERED: MORPHINE SULFATE 4 MG/ML SYR IVP ONE (09:05)
[2023-08-04] MEDS ORDERED: NACL 0.9% 1,000 ML IV ONE (09:40)
[2023-08-04 10:14] LABS: BASOPHILS # (AUTO) 0.1 K/uL (0.00-0.22); BASOPHILS % (AUTO) 0.5 % (0.0-2.0); EOSINOPHILS # (AUTO) 0.1 K/uL (0-0.4); EOSINOPHILS % (AUTO) 0.7 % (0.0-4.0); HEMATOCRIT 35.9 % (36-48); HEMOGLOBIN 12.1 g/dL (12.0-16.0); LYMPHOCYTES # (AUTO) 2.4 K/uL (2.5-16.5); MEAN CORPUSCULAR HEMOGLOBIN 31 pg (27-31); MEAN CORPUSCULAR HGB CONC 34 g/dL (33-37); MEAN CORPUSCULAR VOLUME 91.1 fL (80-94); MONOCYTES # (AUTO) 0.6 K/uL (0.8-1.0); MONOCYTES % (AUTO) 4.8 % (1.7-9.3); NEUTROPHILS # (AUTO) 9.3 K/uL (1.8-7.7); PLATELET COUNT (AUTO) 315 K/uL (140-450); RED BLOOD CELL COUNT(AUTO) 3.94 MIL/uL (4.20-5.40); RED CELL DISTRIBUTION WIDTH 15.2 % (11.6-13.7); WHITE BLOOD COUNT (AUTO) 12.4 K/uL (4.8-10.8)
[2023-08-04 10:23] LABS: INR 1.04 (0.8-1.2); PARTIAL THROMBOPLASTIN TIME 28.1 secs (22-35.6); PROTHROMBIN TIME 10.9 secs (10.8-13.4)
[2023-08-04 10:32] LABS: ANION GAP 12.7 (8-16); CALCIUM 8.9 mg/dL (8.5-10.1); CARBON DIOXIDE 27.6 mmol/L (21-32); CREATININE 1.1 mg/dL (0.6-1.3); POTASSIUM 4.3 mmol/L (3.5-5.1)
[2023-08-04 10:48] LABS: ALBUMIN 3.2 g/dL (3.4-5.0); BILIRUBIN,DIRECT 0.1 mg/dL (0.0-0.3); TOTAL BILIRUBIN 0.5 mg/dL (0.0-1.0); TOTAL PROTEIN, SERUM 6.8 g/dL (6.4-8.2)
[2023-08-04] MEDS ORDERED: KETOROLAC 30 MG/ML VIAL IVP ONE (11:10)
[2023-08-04] MEDS ORDERED: HYDROcodone/APAP 10/325 MG 1 TAB TAB PO ONE (11:25)
[2023-08-04] MEDS ORDERED: NAPR-1704 PO (13:07)
[2023-08-04] MEDS ORDERED: LID5T TP (13:07)
[2023-08-04] MEDS ORDERED: PRED20TA5 PO (13:07)
[2023-08-04] MEDS ORDERED: HYDR-5191 PO (13:07)
[2023-08-04 13:29] VITALS: BP 98/59; PULSE 95; RESP 18; TEMP 98; O2SAT 100
== END 2023-08-04 13:29 | disposition home or self-care (01) ==
LOC: MED 06:50
DX: S22.080A Wedge compression fracture of T11-T12 vertebra, initial encounter for closed fracture (principal); I10 Essential (primary) hypertension; J44.9 Chronic obstructive pulmonary disease, unspecified; J45.909 Unspecified asthma, uncomplicated; Z88.8 Allergy status to other drugs, medicaments and biological substances; Z79.899 Other long term (current) drug therapy; W18.30XA Fall on same level, unspecified, initial encounter; Y93.89 Activity, other specified; Y92.89 Other specified places as the place of occurrence of the external cause; Y99.8 Other external cause status
CPT/HCPCS: 36415; 70450; 72131; 80048; 80076; 85025; 85610; 85730; 96361; 96372; 96374; 99285; J1885; J2270; J7512; J7030

== ENCOUNTER 2023-08-13 01:02 | Emergency (ER) | payer OTHER ==
[~2023-08-13] VITALS: Ht 170.2 cm; Wt 104.3 kg
[~2023-08-13 01:02] MED LIST changes: +PRED20TA5 PO
[2023-08-13 01:15] VITALS: BP 114/75; PULSE 76; RESP 20; TEMP 97.8; O2SAT 98
[2023-08-13] MEDS ORDERED: OFLO5SOL OP (03:22)
[2023-08-13 03:41] VITALS: BP 114/75; PULSE 76; RESP 20; TEMP 97.8; O2SAT 98
== END 2023-08-13 03:41 | disposition home or self-care (01) ==
LOC: MED 01:02
DX: H10.9 Unspecified conjunctivitis (principal); J44.9 Chronic obstructive pulmonary disease, unspecified; I10 Essential (primary) hypertension; Z86.39 Personal history of other endocrine, nutritional and metabolic disease; Z98.890 Other specified postprocedural states; Z79.899 Other long term (current) drug therapy; Z79.1 Long term (current) use of non-steroidal anti-inflammatories (NSAID); Z79.2 Long term (current) use of antibiotics; Z79.82 Long term (current) use of aspirin; Z88.5 Allergy status to narcotic agent
CPT/HCPCS: 99283

== ENCOUNTER 2023-08-30 14:09 | Emergency (ER) | payer OTHER ==
[~2023-08-30] VITALS: Ht 162.6 cm; Wt 66.7 kg
[~2023-08-30 14:09] MED LIST changes: +OFLO5SOL OP
[2023-08-30 14:12] VITALS: BP 125/83; PULSE 112; RESP 18; TEMP 98.5; O2SAT 94
[2023-08-30] MEDS ORDERED: NACL 0.9% 1,000 ML IV ONE (14:40)
[2023-08-30] MEDS ORDERED: MORPHINE SULFATE 4 MG/ML SYR IVP ONE ×2 (14:40→17:00)
[2023-08-30 15:38] LABS: BASOPHILS % (AUTO) 0.4 % (0.0-2.0); EOSINOPHILS # (AUTO) 0.2 K/uL (0-0.4); EOSINOPHILS % (AUTO) 2.7 % (0.0-4.0); HEMATOCRIT 37.4 % (36-48); HEMOGLOBIN 12.8 g/dL (12.0-16.0); LYMPHOCYTES # (AUTO) 3.9 K/uL (2.5-16.5); LYMPHOCYTES % (AUTO) 44.4 % (20.5-51.1); MEAN CORPUSCULAR HEMOGLOBIN 31 pg (27-31); MEAN CORPUSCULAR HGB CONC 34 g/dL (33-37); MEAN CORPUSCULAR VOLUME 91.1 fL (80-94); MONOCYTES # (AUTO) 0.7 K/uL (0.8-1.0); MONOCYTES % (AUTO) 7.9 % (1.7-9.3); NEUTROPHILS # (AUTO) 3.9 K/uL (1.8-7.7); NEUTROPHILS % (AUTO) 44.6 % (42.2-75.2); PLATELET COUNT (AUTO) 359 K/uL (140-450); RED BLOOD CELL COUNT(AUTO) 4.11 MIL/uL (4.20-5.40); RED CELL DISTRIBUTION WIDTH 15.7 % (11.6-13.7); WHITE BLOOD COUNT (AUTO) 8.7 K/uL (4.8-10.8)
[2023-08-30 15:51] LABS: ALBUMIN 3.3 g/dL (3.4-5.0); ANION GAP 10.2 (8-16); CALCIUM 8.5 mg/dL (8.5-10.1); CARBON DIOXIDE 30.7 mmol/L (21-32); POTASSIUM 3.9 mmol/L (3.5-5.1); TOTAL BILIRUBIN 0.2 mg/dL (0.0-1.0); TOTAL PROTEIN, SERUM 7.9 g/dL (6.4-8.2)
[2023-08-30] MEDS ORDERED: LOPE1TAB14 PO (17:39)
[2023-08-30] MEDS ORDERED: ACET-10509 PO (17:39)
[2023-08-30 18:15] VITALS: BP 120/83; PULSE 95; RESP 18; TEMP 98.5; O2SAT 94
== END 2023-08-30 18:16 | disposition home or self-care (01) ==
LOC: MED 14:09
DX: S43.401A Unspecified sprain of right shoulder joint, initial encounter (principal); S01.20XA Unspecified open wound of nose, initial encounter; E86.0 Dehydration; R19.7 Diarrhea, unspecified; M54.2 Cervicalgia; J44.9 Chronic obstructive pulmonary disease, unspecified; I10 Essential (primary) hypertension; Z86.69 Personal history of other diseases of the nervous system and sense organs; Z79.899 Other long term (current) drug therapy; Z79.2 Long term (current) use of antibiotics; Z79.1 Long term (current) use of non-steroidal anti-inflammatories (NSAID); Z88.5 Allergy status to narcotic agent; F31.9 Bipolar disorder, unspecified; F20.9 Schizophrenia, unspecified; W01.198A Fall on same level from slipping, tripping and stumbling with subsequent striking against other object, initial encounter; Y92.89 Other specified places as the place of occurrence of the external cause; Y93.89 Activity, other specified; Y99.8 Other external cause status
CPT/HCPCS: 36415; 70450; 71045; 72125; 73030; 73060; 80053; 85025; 93005; 96361; 96374; 96376; 99285; J2270; Q0092

== ENCOUNTER 2023-09-10 04:25 | Emergency (ER) | payer OTHER ==
[~2023-09-10] VITALS: Ht 157.5 cm; Wt 72.6 kg
[2023-09-10 04:42] VITALS: BP 143/80; PULSE 96; RESP 18; TEMP 98.3
[2023-09-10] MEDS ORDERED: KETOROLAC 30 MG/ML VIAL IM ONE (07:15)
[2023-09-10] MEDS ORDERED: LIDOCAINE 5% 1 EA PATCH TP ONE (07:15)
[2023-09-10 07:51] VITALS: BP 135/80; PULSE 88; RESP 18; TEMP 98.3; O2SAT 96
== END 2023-09-10 07:51 | disposition home or self-care (01) ==
LOC: MED 04:25
DX: S42.301D Unspecified fracture of shaft of humerus, right arm, subsequent encounter for fracture with routine healing (principal); G89.29 Other chronic pain; M79.621 Pain in right upper arm; J44.9 Chronic obstructive pulmonary disease, unspecified; I10 Essential (primary) hypertension; Z86.69 Personal history of other diseases of the nervous system and sense organs; Z79.899 Other long term (current) drug therapy; Z79.1 Long term (current) use of non-steroidal anti-inflammatories (NSAID); Z79.2 Long term (current) use of antibiotics; Z79.82 Long term (current) use of aspirin; Z88.8 Allergy status to other drugs, medicaments and biological substances; W18.39XD Other fall on same level, subsequent encounter
CPT/HCPCS: 96372; 99283; J1885

== ENCOUNTER 2023-09-16 05:35 | Emergency (ER) | payer OTHER ==
[~2023-09-16] VITALS: Ht 162.6 cm; Wt 66.7 kg
[2023-09-16 05:43] VITALS: BP 118/71; PULSE 111; RESP 18; TEMP 97.4; O2SAT 98
[2023-09-16 05:53] VITALS: TEMP 97.4
[2023-09-16] MEDS ORDERED: NACL 0.9% 1,000 ML IV ONE (06:00)
[2023-09-16] MEDS ORDERED: diphenhydrAMINE 50 MG/ML VIAL IVP ONE (06:25)
[2023-09-16] MEDS ORDERED: PROCHLORPERAZINE 10 MG/2 ML VIAL IVP ONE (06:25)
[2023-09-16] MEDS ORDERED: ACETAMINOPHEN EXTRA STRENGTH 500 MG TAB PO ONE (06:25)
[2023-09-16 07:34] LABS: BARBITURATE, URINE POSITIVE ng/ml (NEG <=200)
[2023-09-16 07:35] LABS: AMPHETAMINE, URINE POSITIVE ng/ml (NEG <=1000); BENZODIAZEPINE, URINE POSITIVE ng/mL (NEG <=200); CANNABINOID, URINE NEGATIVE ng/mL (NEG <=50); COCAINE, URINE NEGATIVE ng/mL (NEG <=300); PHENCYCLIDINE SCREEN,URINE NEGATIVE ng/mL (NEG <=25)
[2023-09-16 07:39] LABS: OPIATE, URINE POSITIVE ng/mL (NEG <=2000)
[2023-09-16] MEDS ORDERED: IBUP-2213 PO (07:39)
[2023-09-16 07:45] VITALS: BP 112/68; PULSE 98; RESP 18; O2SAT 98
== END 2023-09-16 08:02 | disposition home or self-care (01) ==
LOC: MED 05:35
DX: S09.90XA Unspecified injury of head, initial encounter (principal); E86.0 Dehydration; J44.9 Chronic obstructive pulmonary disease, unspecified; I10 Essential (primary) hypertension; J45.909 Unspecified asthma, uncomplicated; Z79.899 Other long term (current) drug therapy; X58.XXXA Exposure to other specified factors, initial encounter; Y93.89 Activity, other specified; Y92.89 Other specified places as the place of occurrence of the external cause; Y99.8 Other external cause status
CPT/HCPCS: 70450; 80305; 81002; 96361; 96374; 96375; 99285; J0780; J1200; J7030

== ENCOUNTER 2023-09-29 06:30 | Emergency (ER) | payer OTHER ==
[~2023-09-29] VITALS: Ht 162.6 cm; Wt 66.7 kg
[2023-09-29 06:47] VITALS: BP 117/74; PULSE 112; RESP 18; TEMP 97.8; O2SAT 100
[2023-09-29] MEDS: KETOROLAC 30 MG/ML VIAL IM ONE (07:11)
[2023-09-29] MEDS: HYDROcodone/APAP 5/325 MG 1 TAB TAB PO ONE (07:13)
[2023-09-29 07:30] VITALS: BP 117/74; PULSE 112; RESP 18; TEMP 97.8; O2SAT 100
== END 2023-09-29 07:30 | disposition home or self-care (01) ==
LOC: MED 06:30
DX: M25.511 Pain in right shoulder (principal); J45.909 Unspecified asthma, uncomplicated; J44.9 Chronic obstructive pulmonary disease, unspecified; I10 Essential (primary) hypertension; Z79.899 Other long term (current) drug therapy; Z88.8 Allergy status to other drugs, medicaments and biological substances
CPT/HCPCS: 96372; 99283; J1885

== ENCOUNTER 2023-12-20 10:08 | Emergency (ER) | payer OTHER ==
[~2023-12-20] VITALS: Ht 162.6 cm; Wt 60.4 kg
[~2023-12-20 10:08] MED LIST changes: +HYDR-5071 PO; -HYDR-5191 PO; +NAPR-337 PO; -NAPR-54 PO
[2023-12-20 10:14] VITALS: BP 124/88; PULSE 100; TEMP 97.3; O2SAT 97
[2023-12-20] MEDS: KETOROLAC 30 MG/ML VIAL IM ONE (11:57)
[2023-12-20] MEDS ORDERED: IBUP-2218 PO (12:13)
[2023-12-20] MEDS ORDERED: ACET-8905 PO (12:13)
[2023-12-20 12:54] VITALS: BP 141/88; PULSE 80; RESP 20; TEMP 98.4; O2SAT 97
== END 2023-12-20 12:55 | disposition home or self-care (01) ==
LOC: MED 10:08
DX: S62.614A Displaced fracture of proximal phalanx of right ring finger, initial encounter for closed fracture (principal); S62.616A Displaced fracture of proximal phalanx of right little finger, initial encounter for closed fracture; J45.909 Unspecified asthma, uncomplicated; J44.9 Chronic obstructive pulmonary disease, unspecified; I10 Essential (primary) hypertension; Z79.899 Other long term (current) drug therapy; W18.30XA Fall on same level, unspecified, initial encounter; Y93.89 Activity, other specified; Y92.89 Other specified places as the place of occurrence of the external cause; Y99.8 Other external cause status
CPT/HCPCS: 29125; 73060; 73110; 73130; 96372; 99284; J1885

== ENCOUNTER 2023-12-24 05:20 | Emergency (ER) | payer OTHER ==
[~2023-12-24] VITALS: Ht 154.9 cm; Wt 60.8 kg
[~2023-12-24 05:20] MED LIST changes: +IBUP-2218 PO
[2023-12-24 05:25] VITALS: BP 130/90; PULSE 101; RESP 19; TEMP 97.9; O2SAT 98
[2023-12-24 05:50] VITALS: BP 130/90; PULSE 101; RESP 19; TEMP 97.9
[2023-12-24 05:54] VITALS: O2SAT 98
== END 2023-12-24 06:55 | disposition home or self-care (01) ==
LOC: MED 05:20
DX: S62.606A Fracture of unspecified phalanx of right little finger, initial encounter for closed fracture (principal); S62.602A Fracture of unspecified phalanx of right middle finger, initial encounter for closed fracture; J44.9 Chronic obstructive pulmonary disease, unspecified; I10 Essential (primary) hypertension; Z79.1 Long term (current) use of non-steroidal anti-inflammatories (NSAID); Z79.2 Long term (current) use of antibiotics; Z79.82 Long term (current) use of aspirin; Z79.899 Other long term (current) drug therapy; Z88.8 Allergy status to other drugs, medicaments and biological substances; W19.XXXA Unspecified fall, initial encounter; Y93.89 Activity, other specified; Y92.89 Other specified places as the place of occurrence of the external cause; Y99.8 Other external cause status
CPT/HCPCS: 29125; 73030; 73080; 73090; 73140; 99284; Q0092

== ENCOUNTER 2024-02-04 17:00 | Emergency (ER) | payer OTHER ==
[~2024-02-04] VITALS: Ht 162.6 cm; Wt 59.0 kg
[2024-02-04 17:06] VITALS: BP 120/74; PULSE 86; RESP 16; TEMP 97.4; O2SAT 97
[2024-02-04] MEDS: ONDANSETRON 4 MG ODT PO ONE ×2 (18:10→19:35)
[2024-02-04] MEDS: KETOROLAC 30 MG/ML VIAL IM ONE (18:11)
[2024-02-04] MEDS ORDERED: DICL100G32 TP (19:33)
[2024-02-04] MEDS ORDERED: IBUP-2213 PO (19:33)
[2024-02-04 19:51] VITALS: BP 115/77; PULSE 66; RESP 16; TEMP 97.8; O2SAT 98
== END 2024-02-04 19:51 | disposition home or self-care (01) ==
LOC: MED 17:00
DX: S40.011A Contusion of right shoulder, initial encounter (principal); S20.212A Contusion of left front wall of thorax, initial encounter; J45.909 Unspecified asthma, uncomplicated; J44.9 Chronic obstructive pulmonary disease, unspecified; I10 Essential (primary) hypertension; Z88.8 Allergy status to other drugs, medicaments and biological substances; Z79.899 Other long term (current) drug therapy; Z98.890 Other specified postprocedural states; F17.200 Nicotine dependence, unspecified, uncomplicated; F41.9 Anxiety disorder, unspecified; W18.30XA Fall on same level, unspecified, initial encounter; Y93.89 Activity, other specified; Y92.89 Other specified places as the place of occurrence of the external cause; Y99.8 Other external cause status
CPT/HCPCS: 71101; 73030; 96372; 99284; J1885; Q0162

== ENCOUNTER 2024-03-26 16:40 | Emergency (ER) | payer OTHER ==
[~2024-03-26] VITALS: Ht 162.6 cm; Wt 57.6 kg
[~2024-03-26 16:40] MED LIST changes: +DICL100G32 TP
[2024-03-26 16:48] VITALS: BP 105/71; PULSE 110; RESP 17; TEMP 98.9; O2SAT 99
[2024-03-26] MEDS: KETOROLAC 30 MG/ML VIAL IM ONE (18:09)
[2024-03-26 19:17] VITALS: BP 148/83; PULSE 89; RESP 20; O2SAT 98
[2024-03-26] MEDS ORDERED: ACET-10509 PO (19:50)
== END 2024-03-26 20:15 | disposition home or self-care (01) ==
LOC: MED 16:40
DX: S63.91XA Sprain of unspecified part of right wrist and hand, initial encounter (principal); S40.011A Contusion of right shoulder, initial encounter; S50.01XA Contusion of right elbow, initial encounter; J44.9 Chronic obstructive pulmonary disease, unspecified; I10 Essential (primary) hypertension; Z86.69 Personal history of other diseases of the nervous system and sense organs; Z79.899 Other long term (current) drug therapy; Z79.1 Long term (current) use of non-steroidal anti-inflammatories (NSAID); Z79.82 Long term (current) use of aspirin; Z88.8 Allergy status to other drugs, medicaments and biological substances; V98.8XXA Other specified transport accidents, initial encounter; Y93.89 Activity, other specified; Y92.89 Other specified places as the place of occurrence of the external cause; Y99.8 Other external cause status
CPT/HCPCS: 73030; 73080; 73090; 73130; 96372; 99284; J1885; Q0092

== ENCOUNTER 2024-04-12 08:00 | Emergency (ER) | payer OTHER ==
[~2024-04-12] VITALS: Ht 162.6 cm; Wt 68.0 kg
[~2024-04-12 08:00] MED LIST changes: -ACET-10509 PO; +ACET500T99 PO
[2024-04-12 08:03] VITALS: BP 106/74; PULSE 95; RESP 18; TEMP 97.6
[2024-04-12] MEDS: KETOROLAC 60 MG/2 ML VIAL IM ONE (08:39)
[2024-04-12] MEDS ORDERED: ACET-8905 PO (10:49)
[2024-04-12 10:53] VITALS: BP 111/74; PULSE 93; RESP 18; TEMP 97.6
[2024-04-12] MEDS ORDERED: ACYC400T14 PO (10:56)
== END 2024-04-12 10:53 | disposition home or self-care (01) ==
LOC: MED 08:00
DX: S32.10XA Unspecified fracture of sacrum, initial encounter for closed fracture (principal); J44.9 Chronic obstructive pulmonary disease, unspecified; I10 Essential (primary) hypertension; Z86.73 Personal history of transient ischemic attack (TIA), and cerebral infarction without residual deficits; F31.9 Bipolar disorder, unspecified; F20.9 Schizophrenia, unspecified; Z79.1 Long term (current) use of non-steroidal anti-inflammatories (NSAID); Z79.899 Other long term (current) drug therapy; Z88.8 Allergy status to other drugs, medicaments and biological substances; X58.XXXA Exposure to other specified factors, initial encounter; Y93.89 Activity, other specified; Y92.89 Other specified places as the place of occurrence of the external cause; Y99.8 Other external cause status
CPT/HCPCS: 72100; 72220; 73030; 81025; 96372; 99284; J1885

== ENCOUNTER 2024-04-26 03:55 | Emergency (ER) | payer OTHER ==
[~2024-04-26] VITALS: Ht 162.6 cm; Wt 63.0 kg
[~2024-04-26 03:55] MED LIST changes: +ACYC400T14 PO
[2024-04-26 03:56] VITALS: BP 111/66; PULSE 83; RESP 18; TEMP 98.1; O2SAT 98
[2024-04-26] MEDS: KETOROLAC 30 MG/ML VIAL IVP ONE (05:02)
[2024-04-26] MEDS: ACETAMINOPHEN EXTRA STRENGTH 500 MG TAB PO ONE (05:04)
[2024-04-26 05:25] VITALS: BP 111/66; PULSE 83; RESP 18; TEMP 98.1; O2SAT 98
== END 2024-04-26 05:25 | disposition home or self-care (01) ==
LOC: MED 03:55
DX: M25.511 Pain in right shoulder (principal); J44.9 Chronic obstructive pulmonary disease, unspecified; I10 Essential (primary) hypertension; Z86.69 Personal history of other diseases of the nervous system and sense organs; Z86.73 Personal history of transient ischemic attack (TIA), and cerebral infarction without residual deficits; Z79.1 Long term (current) use of non-steroidal anti-inflammatories (NSAID); Z79.2 Long term (current) use of antibiotics; Z79.899 Other long term (current) drug therapy; Z88.8 Allergy status to other drugs, medicaments and biological substances
CPT/HCPCS: 73030; 96374; 99283; J1885; Q0092

== ENCOUNTER 2024-04-26 20:24 | Emergency (ER) | payer OTHER ==
[~2024-04-26] VITALS: Ht 162.6 cm; Wt 63.5 kg
[2024-04-26 20:38] VITALS: BP 118/78; PULSE 90; RESP 16; TEMP 98.7; O2SAT 95
[2024-04-26] MEDS: KETOROLAC 30 MG/ML VIAL IM ONE (21:29)
[2024-04-26 22:15] VITALS: BP 118/78; PULSE 90; RESP 16; TEMP 98.7; O2SAT 95
== END 2024-04-26 22:15 | disposition home or self-care (01) ==
LOC: MED 20:24
DX: S00.03XA Contusion of scalp, initial encounter (principal); J44.9 Chronic obstructive pulmonary disease, unspecified; I10 Essential (primary) hypertension; Z86.69 Personal history of other diseases of the nervous system and sense organs; Z86.73 Personal history of transient ischemic attack (TIA), and cerebral infarction without residual deficits; Z79.899 Other long term (current) drug therapy; Z79.82 Long term (current) use of aspirin; Z88.5 Allergy status to narcotic agent; W01.198A Fall on same level from slipping, tripping and stumbling with subsequent striking against other object, initial encounter; Y92.89 Other specified places as the place of occurrence of the external cause; Y93.89 Activity, other specified; Y99.8 Other external cause status
CPT/HCPCS: 70450; 72125; 96372; 99285; J1885

== ENCOUNTER 2024-05-12 06:28 | Emergency (ER) | payer OTHER ==
[~2024-05-12] VITALS: Ht 165.1 cm; Wt 68.0 kg
[2024-05-12 06:37] VITALS: BP 99/62; PULSE 91; RESP 18; TEMP 98; O2SAT 95
[2024-05-12] MEDS: LORazepam 1 MG TAB PO ONE (07:06)
== END 2024-05-12 07:48 | disposition home or self-care (01) ==
LOC: MED 06:28
DX: M79.602 Pain in left arm (principal); F41.9 Anxiety disorder, unspecified; J44.9 Chronic obstructive pulmonary disease, unspecified; I10 Essential (primary) hypertension; F31.9 Bipolar disorder, unspecified; F20.9 Schizophrenia, unspecified; Z86.69 Personal history of other diseases of the nervous system and sense organs; Z86.73 Personal history of transient ischemic attack (TIA), and cerebral infarction without residual deficits; Z98.890 Other specified postprocedural states; Z79.899 Other long term (current) drug therapy; Z88.5 Allergy status to narcotic agent
CPT/HCPCS: 99283